=== PATIENT | male | born 1945 | race Caucasian/White ===

== ENCOUNTER → 2020-07-06 13:12 | Outpatient (BNVA) | payer MEDICARE, SELFPAY | PROVIDERS: PCP Internal Medicine; Referring Provider Internal Medicine; Visit Provider Internal Medicine | DX: Z45.018 Encounter for adjustment and management of other part of cardiac pacemaker (principal); I47.2 Ventricular tachycardia; I10 Essential (primary) hypertension | CPT/HCPCS: 93005; 99212 ==

== ENCOUNTER 2020-08-06 10:52 | Outpatient (REF) | payer MEDICARE, SELFPAY ==
[2020-08-06 12:01] LABS: MANUAL DIFF FLAG NO
[2020-08-06 12:18] LABS: Basophils Absolute Auto 0.1 X10*3/uL (0.0-0.2); Basophils Percent Auto 0.7 % (0-2); Eosinophils Absolute Auto 0.1 X10*3/uL (0.0-0.4); Eosinophils Percent Auto 1.5 % (0-4); Hematocrit 42.7 % (42-52); Hemoglobin 14.6 g/dl (14.0-18.0); Imm Gran Abs Auto 0.02 X10*3/uL (0.00-0.03); Imm Gran Pct Auto 0.3 % (0.0-0.4); Lymphocytes Absolute Auto 1.6 X10*3/uL (1.2-4.9); Lymphocytes Percent Auto 21.7 % (20-40); Mean Corpuscular HGB Conc 34.2 g/dl (31.0-36.0); Mean Corpuscular Hemoglobin 30.2 pg (27.0-33.0); Mean Corpuscular Volume 88.2 fL (80-98); Mean Platelet Volume 11.1 fL (9.4-12.4); Monocytes Absolute Auto 0.7 X10*3/uL (0.1-1.2); Monocytes Percent Auto 9.9 % (2-11); Neutrophils Percent Auto 65.9 % (45-73); Platelet Count 205 X10*3/uL (160-400); Red Blood Count 4.84 X10*6/uL (4.60-5.80); Red Cell Distribution Width 11.9 % (11.0-16.0); White Blood Count 7.5 X10*3/uL (4.8-10.8)
[2020-08-06 12:23] LABS: INTERNATIONAL NORM RATIO 1.1 (0.9-1.1); Prothrombin Time 12.9 SEC (10.8-13.0)
[2020-08-06 12:39] LABS: Anion Gap 12 (12-20); Blood Urea Nitrogen 16 mg/dL (9-16); Calcium 9.7 mg/dL (8.4-10.2); Carbon Dioxide 25 mmol/L (22-29); Chloride 107 mmol/L (96-108); Estimated Glomerular Filt Rate > 60; Glucose Random 120 mg/dL (60-115); Potassium 4.3 mmol/l (3.3-5.1); Sodium 140 mmol/L (135-145)
== END 2020-08-06 10:53 | disposition home or self-care (01) ==
LOC: HO.LAB 10:52
PROVIDERS: PCP Internal Medicine; Visit Provider Internal Medicine Cardiovascular Disease
DX: Z01.810 Encounter for preprocedural cardiovascular examination (principal)
CPT/HCPCS: 36415; 80048; 85025; 85610

== ENCOUNTER 2020-08-10 10:34 | Day surgery (SDC) | payer MEDICARE, SELFPAY ==
[2020-08-04 14:37] VITALS: BMI 27.5
--- NOTE | 2020-08-07 12:39 | HO.ANESPROP2 ---
Documented by User: Chelsi Miller 08/07/20 12:48 [facility] Past Medical History Medical History (Updated 08/04/20 @ 14:42 by Lesli Sauceda) BPH (benign prostatic hyperplasia) Essential hypertension Hyperlipidemia, unspecified Normally functioning cardiac pacemaker present NSVT (nonsustained ventricular tachycardia) Type 2 diabetes mellitus with unspecified complications Wears partial dentures Family History Family History Father Diabetes Heart disease Mother Hypertension CVD (cardiovascular disease) Surgical History Surgical History (Updated 08/04/20 @ 14:39 by Lesli Sauceda) H/O colonoscopy History of cardiac pacemaker (~2011) Hx of appendectomy Social History Social History Smoking Status: Former smoker Use of substances other than those prescribed or required for medical reasons: No Advance Directives Information Provided: No Recently lost weight without trying: No Meds Allergies Allergy/AdvReac Type Severity Reaction Status Date / Time No Known Allergies Allergy Verified 08/07/20 14:15 Home Medications Medication Instructions Recorded Confirmed Type aspirin 81 mg tablet,delayed 81 mg PO DAILY 07/06/20 08/04/20 History release atenolol 50 mg tablet 50 mg PO DAILY 07/06/20 08/04/20 History cholecalciferol (vitamin D3) 25 25 mcg PO DAILY 07/06/20 08/04/20 History mcg (1,000 unit) capsule cyanocobalamin (vitamin B-12) 1,000 mcg PO DAILY 07/06/20 08/04/20 History 1,000 mcg sublingual tablet metformin 500 mg tablet 1,000 mg PO BID 07/06/20 08/04/20 History Exam Exam Date and Time: August 07, 2020 1239 Height,Weight and Vital Signs: Height 6 ft Weight 92.079 kg Pertinent Lab Results Pertinent Lab Results: Laboratory Tests 08/06/20 08/06/20 11:10 11:10 WBC 7.5 Hgb 14.6 Hct 42.7 Plt Count 205 Sodium 140 Potassium 4.3 Chloride 107 Carbon Dioxide 25 BUN 16 Creatinine 0.86 Narrative Narrative: Cardiac Device Check 05/2020 Details: ELVIS less than 3 months. Be lead parameters within normal limits. Atrially paced 7.4%. Ventricular pacing more than 99%. PVCs noted but no other arrhythmias. Overall normal function. Per Cardiology Note 06/2020: Echocardiogram with mildly impaired LVEF at 45-50%. Myocardial perfusion imaging study with likely normal perfusion. Overall, no specific management. EKG 06/2020: A-sensed, V-paced @ 73, prolonged AV conduction Assessment and Plan Assessment Anesthesia Assessment: Chart Reviewed Documented by User: Latanya River 08/10/20 12:49 HPI - Anesthesia Eval Consult details Narrative: 75yo male patient here for pacemaker generator change [facility] Past Medical History Medical History (Updated 08/04/20 @ 14:42 by Lesli Sauceda) BPH (benign prostatic hyperplasia) Essential hypertension Hyperlipidemia, unspecified Normally functioning cardiac pacemaker present NSVT (nonsustained ventricular tachycardia) Type 2 diabetes mellitus with unspecified complications Wears partial dentures Family History Family History Father Diabetes Heart disease Mother Hypertension CVD (cardiovascular disease) Family history of problems with anesthesia: No Surgical History Surgical History (Updated 08/04/20 @ 14:39 by Lesli Sacueda) H/O colonoscopy History of cardiac pacemaker (~2011) Hx of appendectomy History of Problems with Anesthesia: No Social History Social History Smoking Status: Former smoker Use of substances other than those prescribed or required for medical reasons: No Advance Directives Information Provided: No Recently lost weight without trying: No Meds Allergies Allergy/AdvReac Type Severity Reaction Status Date / Time No Known Allergies Allergy Verified 08/07/20 14:15 Home Medications Medication Instructions Recorded Confirmed Type aspirin 81 mg tablet,delayed 81 mg PO DAILY 07/06/20 08/04/20 History release atenolol 50 mg tablet 50 mg PO DAILY 07/06/20 08/04/20 History cholecalciferol (vitamin D3) 25 25 mcg PO DAILY 07/06/20 08/04/20 History mcg (1,000 unit) capsule cyanocobalamin (vitamin B-12) 1,000 mcg PO DAILY 07/06/20 08/04/20 History 1,000 mcg sublingual tablet metformin 500 mg tablet 1,000 mg PO BID 07/06/20 08/04/20 History Exam Height,Weight and Vital Signs: Vital Signs Temp Pulse Resp BP Pulse Ox 08/10/20 11:02 97.8 F 70 18 130/60 96 Pertinent Lab Results Pertinent Lab Results: POC 141 Airway Mallampati Class: II TM Dist: >3cm Neck ROM: Full Partial: Upper and Lower Heart: RRR Lungs: CTAB Assessment and Plan Assessment Anesthesia Assessment: Anesthesia Plan Discussed and Chart Reviewed Final Anesthetic Review ASA Class: III Final Preanesthetic Review: Meds/Netogs Chart Reviewed, Consent Obtained/Reviewed and Anes Risks/Benef Reviewed Patient Risk: High Procedure Risk: Intermediate Assessment/Block/Sedation in SS: Assess/Block/Sedation-SS Anesthetic Plan Anesthetic Plan: MAC: Disposition: Standard PACU
[2020-08-10 11:02] VITALS: BP 130/60; PULSE 70; RESP 18; TEMP 36.6; O2SAT 96; BMI 27.5
[2020-08-10 11:15] LABS: Glucose, Whole Blood 141 mg/dL (60-115)
[2020-08-10] MEDS: Lactated Ringers 1,000 ML 50 ML IVCONT (11:30)
--- NOTE | 2020-08-10 11:38 | PC.NURSE ---
[facility] [employer] rep bedside. checking settings of pacemaker.
[2020-08-10 14:24] VITALS: BP 147/66; PULSE 63; RESP 16; TEMP 36.8; O2SAT 97
[2020-08-10 14:39] VITALS: BP 147/68; PULSE 64; RESP 18; O2SAT 96
--- NOTE | 2020-08-10 14:41 | PM.OP ---
Brief Operative Note Date of Service: 08/10/20 Surgeon: Kira Otero MD Estimated blood loss (mL): 0
[2020-08-10 14:54] VITALS: BP 150/73; PULSE 67; RESP 18; O2SAT 96
--- NOTE | 2020-08-10 15:02 | W.PM.OPN ---
Course Vital Signs Vital signs: Vital Signs Temperature 97.8 F 08/10/20 11:02 Pulse Rate 70 08/10/20 11:02 Respiratory Rate 18 08/10/20 11:02 Blood Pressure 130/60 08/10/20 11:02 Pulse Oximetry 96 08/10/20 11:02 Temperature 98.2 F 08/10/20 14:24 Pulse Rate 67 08/10/20 14:54 Respiratory Rate 18 08/10/20 14:54 Blood Pressure 150/73 H 08/10/20 14:54 Pulse Oximetry 96 08/10/20 14:54
--- NOTE | 2020-08-10 15:04 | W.PM.OPN ---
Operative Note Operative Note Date of Service: 08/10/20 Narrative: Date of Service: 08/10/2020 Narrative: Procedure: Dual chamber pacemaker generator change Indication: dual chamber pacemaker ELVIS, complete heart block Anesthesia: MAC provided by anesthesia service Procedure The risks, benefits, complications, alternatives and expected outcomes were discussed with the patient. Patient was prepped and draped in the usual sterile fashion. After the antibiotic was infused, lidocaine was infiltrated medial to the deltopectoral groove. An incision was made. The incision was extended to the prepectoral fascia using blunt dissection. The RV lead was noted to have slight kink towards the end attached to the generator but all impedances/thresholds have been stable. The RV and RA leads were detached from the prior device and attached to the new device. A sleeve was placed around the lead to protect it from further kinking and all parameters were checked again and noted to be stable. The system was placed in the pocket in a way to avoid future kinking. The pocket was closed with 3 layers. 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
== END 2020-08-10 15:46 | disposition home or self-care (01) ==
PROVIDERS: PCP Internal Medicine; Visit Provider Internal Medicine Cardiovascular Disease
PROC: 0JPT0PZ Removal of Cardiac Rhythm Related Device from Trunk Subcutaneous Tissue and Fascia, Open Approach (ICD-10-PCS; CPT 33228; principal; 2020-08-10 12:00)
DX: Z45.010 Encounter for checking and testing of cardiac pacemaker pulse generator [battery] (principal); I44.2 Atrioventricular block, complete; I47.2 Ventricular tachycardia; I10 Essential (primary) hypertension; E11.9 Type 2 diabetes mellitus without complications; Z79.84 Long term (current) use of oral hypoglycemic drugs; Z79.82 Long term (current) use of aspirin; Z79.899 Other long term (current) drug therapy; Z87.891 Personal history of nicotine dependence
CPT/HCPCS: 33228; 82947; C1785; J0690; J2250; J3010; J3370

== ENCOUNTER → 2020-08-25 13:01 | Outpatient (BNVA) | payer MEDICARE, SELFPAY | PROVIDERS: PCP Internal Medicine; Referring Provider Internal Medicine; Visit Provider Internal Medicine | DX: Z45.018 Encounter for adjustment and management of other part of cardiac pacemaker (principal); I47.2 Ventricular tachycardia; I10 Essential (primary) hypertension | CPT/HCPCS: 99212 ==

== ENCOUNTER → 2020-10-02 07:22 | Outpatient (BNVA) | payer MEDICARE, SELFPAY | PROVIDERS: PCP Internal Medicine; Visit Provider Nurse Practitioner Gerontology | DX: E11.65 Type 2 diabetes mellitus with hyperglycemia (principal); E78.00 Pure hypercholesterolemia, unspecified; I10 Essential (primary) hypertension; Z79.84 Long term (current) use of oral hypoglycemic drugs; Z71.3 Dietary counseling and surveillance; Z87.891 Personal history of nicotine dependence | CPT/HCPCS: 82947; 99212 ==

== ENCOUNTER 2020-10-07 13:17 | Outpatient (REF) | payer MEDICARE, SELFPAY ==
[2020-10-07 14:15] LABS: Alanine Aminotransferase 22 U/L (0-40); Albumin Level 4.3 g/dL (3.5-5.0); Alkaline Phosphatase 78 U/L (39-117); Anion Gap 12 (12-20); Aspartate Amino Transferase 19 U/L (5-37); Bilirubin Total 0.6 mg/dL (0.0-1.0); Blood Urea Nitrogen 19 mg/dL (9-16); Calcium 9.4 mg/dL (8.4-10.2); Carbon Dioxide 26 mmol/L (22-29); Chloride 107 mmol/L (96-108); Cholesterol 126 mg/dL; Estimated Glomerular Filt Rate > 60; Glucose Fasting 127 mg/dL (60-99); HDL Cholesterol 37 mg/dL; LDL Cholesterol Calculated 56 mg/dl; Sodium 141 mmol/L (135-145); Total Protein 7.2 g/dL (6.5-8.0); Triglycerides 168 mg/dL
[2020-10-07 14:32] LABS: PSA,Total (Free>4and<10) 3.05 ng/mL (0.00-4.00)
[2020-10-07 14:49] LABS: Creatinine Urine 175.41 mg/dL; Microalbum/Creatinine Ratio Ur 23.3 ug/mg cr
[2020-10-08 04:06] LABS: LDL Cholesterol Direct 70 mg/dL (<100)
== END 2020-10-07 13:18 | disposition home or self-care (01) ==
LOC: HO.LAB 13:17
PROVIDERS: Nurse Practitioner Gerontology; PCP Internal Medicine; Visit Provider Urology
DX: Z12.5 Encounter for screening for malignant neoplasm of prostate (principal); E11.65 Type 2 diabetes mellitus with hyperglycemia; Z87.898 Personal history of other specified conditions
CPT/HCPCS: 36415; 80053; 80061; 82043; 83721; 84153

== ENCOUNTER → 2020-10-15 13:48 | Outpatient (BNVA) | payer MEDICARE, SELFPAY | PROVIDERS: Visit Provider Urology | CPT/HCPCS: 99212 ==

== ENCOUNTER 2020-10-20 07:27 | Outpatient (REF) | payer MEDICARE, SELFPAY ==
[2020-10-20 08:42] LABS: MANUAL DIFF FLAG NO
[2020-10-20 08:47] LABS: Basophils Absolute Auto 0.1 X10*3/uL (0.0-0.2); Basophils Percent Auto 0.8 % (0-2); Eosinophils Absolute Auto 0.2 X10*3/uL (0.0-0.4); Eosinophils Percent Auto 3.8 % (0-4); Glucose Urine UA NEG (NEG); Hematocrit 41.8 % (42-52); Hemoglobin 13.9 g/dl (14.0-18.0); Imm Gran Abs Auto 0.02 X10*3/uL (0.00-0.03); Imm Gran Pct Auto 0.3 % (0.0-0.4); Leukocyte Esterase Urine NEG (NEG); Lymphocytes Absolute Auto 2.1 X10*3/uL (1.2-4.9); Lymphocytes Percent Auto 32.8 % (20-40); Mean Corpuscular HGB Conc 33.3 g/dl (31.0-36.0); Mean Corpuscular Hemoglobin 29.3 pg (27.0-33.0); Mean Corpuscular Volume 88.2 fL (80-98); Mean Platelet Volume 10.7 fL (9.4-12.4); Monocytes Absolute Auto 0.8 X10*3/uL (0.1-1.2); Monocytes Percent Auto 12.7 % (2-11); Neutrophils Absolute Auto 3.1 X10*3/uL (2.0-8.3); Neutrophils Percent Auto 49.6 % (45-73); Nitrite Urine NEG (NEG); PH 7.5 (5.0-8.0); Platelet Count 220 X10*3/uL (160-400); Red Blood Count 4.74 X10*6/uL (4.60-5.80); Red Cell Distribution Width 12.1 % (11.0-16.0); Urine Blood NEG (NEG); Urine Ketones NEG (NEG); Urine Protein NEG (NEG-TRACE); White Blood Count 6.3 X10*3/uL (4.8-10.8)
[2020-10-20 08:50] LABS: Appearance Urine CLOUDY; Color Urine YELLOW
[2020-10-20 09:20] LABS: Creatinine Urine 157.78 mg/dL; Microalbum/Creatinine Ratio Ur 38.6 ug/mg cr
[2020-10-20 09:26] LABS: Alanine Aminotransferase 16 U/L (0-40); Albumin Level 4.3 g/dL (3.5-5.0); Alkaline Phosphatase 86 U/L (39-117); Anion Gap 16 (12-20); Aspartate Amino Transferase 18 U/L (5-37); Bilirubin Total 0.8 mg/dL (0.0-1.0); Blood Urea Nitrogen 24 mg/dL (9-16); Calcium 9.7 mg/dL (8.4-10.2); Carbon Dioxide 25 mmol/L (22-29); Chloride 106 mmol/L (96-108); Cholesterol 121 mg/dL; Estimated Glomerular Filt Rate > 60; Glucose Fasting 149 mg/dL (60-99); HDL Cholesterol 38 mg/dL; LDL Cholesterol Calculated 67 mg/dl; Potassium 4.7 mmol/L (3.3-5.1); Sodium 142 mmol/L (135-145); Total Protein 7.3 g/dL (6.5-8.0); Triglycerides 80 mg/dL
[2020-10-20 09:29] LABS: Estimated Average Glucose 148 mg/dL; Hemoglobin A1c % 6.8 %
[2020-10-20 09:38] LABS: TSH reflex Free T4 1.05 uIU/mL (0.32-4.0); Vitamin D 25-OH Total 32.1 ng/mL (>30)
== END 2020-10-20 07:28 | disposition home or self-care (01) ==
LOC: HO.LAB 07:27
PROVIDERS: PCP Internal Medicine; Visit Provider Internal Medicine
DX: I10 Essential (primary) hypertension (principal); E11.9 Type 2 diabetes mellitus without complications; E78.00 Pure hypercholesterolemia, unspecified; E55.9 Vitamin D deficiency, unspecified; E66.3 Overweight
CPT/HCPCS: 36415; 80053; 80061; 81003; 82043; 82306; 83036; 84443; 85025

== ENCOUNTER → 2021-01-27 07:25 | Outpatient (BNVA) | payer MEDICARE, SELFPAY | PROVIDERS: PCP Internal Medicine; Visit Provider Nurse Practitioner Gerontology | DX: E11.65 Type 2 diabetes mellitus with hyperglycemia (principal); I10 Essential (primary) hypertension; E78.00 Pure hypercholesterolemia, unspecified | CPT/HCPCS: 82947; 99212 ==

== ENCOUNTER → 2021-02-02 13:37 | Outpatient (BNVA) | payer MEDICARE, SELFPAY | PROVIDERS: PCP Internal Medicine; Visit Provider Internal Medicine | DX: Z45.018 Encounter for adjustment and management of other part of cardiac pacemaker (principal); I47.2 Ventricular tachycardia; I10 Essential (primary) hypertension; E11.8 Type 2 diabetes mellitus with unspecified complications | CPT/HCPCS: 99212 ==

== ENCOUNTER 2021-04-12 10:38 | Outpatient (REF) | payer MEDICARE, SELFPAY ==
[2021-04-12 12:32] LABS: Prostate Specific Antigen 2.91 ng/mL (<0.05-4.0)
== END 2021-04-12 10:39 | disposition home or self-care (01) ==
LOC: HO.LAB 10:38
PROVIDERS: PCP Internal Medicine; Visit Provider Urology
DX: N40.1 Benign prostatic hyperplasia with lower urinary tract symptoms (principal); N13.8 Other obstructive and reflux uropathy
CPT/HCPCS: 36415; 84153

== ENCOUNTER → 2021-04-21 13:59 | Outpatient (BNVA) | payer MEDICARE, SELFPAY | PROVIDERS: PCP Internal Medicine; Visit Provider Urology | DX: N40.0 Benign prostatic hyperplasia without lower urinary tract symptoms (principal) | CPT/HCPCS: Q3014 ==

== ENCOUNTER 2021-04-23 08:09 | Outpatient (REF) | payer MEDICARE, SELFPAY ==
[2021-04-23 08:53] LABS: MANUAL DIFF FLAG NO
[2021-04-23 08:58] LABS: Basophils Percent Auto 0.6 % (0-2); Eosinophils Absolute Auto 0.1 X10*3/uL (0.0-0.4); Eosinophils Percent Auto 2.1 % (0-4); Hematocrit 41.5 % (42-52); Hemoglobin 13.9 g/dl (14.0-18.0); Imm Gran Abs Auto 0.02 X10*3/uL (0.00-0.03); Imm Gran Pct Auto 0.3 % (0.0-0.4); Lymphocytes Absolute Auto 1.7 X10*3/uL (1.2-4.9); Lymphocytes Percent Auto 25.6 % (20-40); Mean Corpuscular HGB Conc 33.5 g/dl (31.0-36.0); Mean Corpuscular Volume 89.4 fL (80-98); Mean Platelet Volume 10.3 fL (9.4-12.4); Monocytes Absolute Auto 0.7 X10*3/uL (0.1-1.2); Neutrophils Percent Auto 60.4 % (45-73); Platelet Count 224 X10*3/uL (160-400); Red Blood Count 4.64 X10*6/uL (4.60-5.80); Red Cell Distribution Width 13.2 % (11.0-16.0); White Blood Count 6.6 X10*3/uL (4.8-10.8)
[2021-04-23 09:04] LABS: Appearance Urine CLOUDY; Color Urine YELLOW; Glucose Urine UA NEG (NEG); Leukocyte Esterase Urine 2+ (NEG); Nitrite Urine NEG (NEG); UACC Culture Trigger YES; Urine Blood NEG (NEG); Urine Ketones NEG (NEG); Urine Protein NEG (NEG-TRACE)
[2021-04-23 09:15] LABS: Bacteria Urine 3+ /LPF; Mucus Urine 1+ /LPF; Squamous Epithelial Cell Urine 1+ /LPF; WBC Urine 50-75 /HPF (0-4)
[2021-04-23 09:23] LABS: Alanine Aminotransferase 27 U/L (0-40); Albumin Level 4.4 g/dL (3.5-5.0); Alkaline Phosphatase 72 U/L (39-117); Anion Gap 12 (12-20); Aspartate Amino Transferase 24 U/L (5-37); Blood Urea Nitrogen 11 mg/dL (9-16); Calcium 10.3 mg/dL (8.4-10.2); Carbon Dioxide 24 mmol/L (22-29); Chloride 110 mmol/L (96-108); Cholesterol 121 mg/dL; Estimated Glomerular Filt Rate > 60; Glucose Fasting 125 mg/dL (60-99); HDL Cholesterol 41 mg/dL; LDL Cholesterol Calculated 64 mg/dl; Potassium 4.4 mmol/L (3.3-5.1); Sodium 142 mmol/L (135-145); Total Protein 7.2 g/dL (6.5-8.0); Triglycerides 84 mg/dL
[2021-04-23 09:24] LABS: Creatinine Urine 126.53 mg/dL
[2021-04-23 09:46] LABS: TSH reflex Free T4 0.87 uIU/mL (0.32-4.0); Vitamin D 25-OH Total 29.2 ng/mL (>30)
[2021-04-23 09:59] LABS: Estimated Average Glucose 131 mg/dL; Hemoglobin A1C 150.3073 umol/L; Hemoglobin A1c % 6.2 %
== END 2021-04-23 08:10 | disposition home or self-care (01) ==
LOC: HO.LAB 08:09
PROVIDERS: PCP Internal Medicine; Visit Provider Internal Medicine
DX: I10 Essential (primary) hypertension (principal); E11.9 Type 2 diabetes mellitus without complications; E78.00 Pure hypercholesterolemia, unspecified; E55.9 Vitamin D deficiency, unspecified; E66.3 Overweight; I49.5 Sick sinus syndrome
CPT/HCPCS: 36415; 80053; 80061; 81001; 81003; 82043; 82306; 83036; 84443; 85025; 87086

== ENCOUNTER → 2021-08-02 12:30 | Outpatient (BNVA) | payer MEDICARE, SELFPAY | PROVIDERS: PCP Internal Medicine; Referring Provider Internal Medicine; Visit Provider Internal Medicine | DX: Z45.018 Encounter for adjustment and management of other part of cardiac pacemaker (principal); I47.2 Ventricular tachycardia; I42.9 Cardiomyopathy, unspecified; I10 Essential (primary) hypertension; E11.8 Type 2 diabetes mellitus with unspecified complications | CPT/HCPCS: 93005; 99212 ==

== ENCOUNTER → 2021-08-30 09:55 | Outpatient (BNVA) | payer MEDICARE, SELFPAY | PROVIDERS: PCP Internal Medicine; Visit Provider Nurse Practitioner Gerontology | DX: E11.65 Type 2 diabetes mellitus with hyperglycemia (principal); I10 Essential (primary) hypertension; E78.00 Pure hypercholesterolemia, unspecified | CPT/HCPCS: 82947; 83036; 99212 ==

== ENCOUNTER 2022-04-14 10:16 | Outpatient (REF) | payer MEDICARE, SELFPAY ==
[2022-04-14 12:19] LABS: Prostate Specific Antigen 3.36 ng/mL (<0.05-4.0)
== END 2022-04-14 10:17 | disposition home or self-care (01) ==
LOC: HO.LAB 10:16
PROVIDERS: PCP Internal Medicine; Visit Provider Urology
DX: N40.1 Benign prostatic hyperplasia with lower urinary tract symptoms (principal); N13.8 Other obstructive and reflux uropathy; Z12.5 Encounter for screening for malignant neoplasm of prostate
CPT/HCPCS: 36415; 84153

== ENCOUNTER → 2022-04-21 11:09 | Outpatient (BNVA) | payer MEDICARE, SELFPAY | PROVIDERS: PCP Internal Medicine; Visit Provider Urology | DX: N40.1 Benign prostatic hyperplasia with lower urinary tract symptoms (principal); R39.15 Urgency of urination; R35.0 Frequency of micturition | CPT/HCPCS: 51798; 99212 ==

== ENCOUNTER → 2022-07-20 10:26 | Outpatient (REF) | payer MEDICARE, SELFPAY ==
--- NOTE | 2022-07-20 10:28 | CA_ITS ---
Transthoracic Echocardiogram Patient (Last, First, Middle): Nasim Gilbert J Gender: Male Date of : 1945 Age: 77 Procedure Date: 07/20/2022 Procedure Type: Transthoracic Echocardiogram Location: OP Height: 182.88 cm Weight: 95.26 kg BSA: 2.18 m2 Heart Rate: 70 bpm BP: 130 / 75 mmHg Forest Fire Prevention Manager: DARRELL Nelson MD: Adriel Marquez MD Tandem Mill Operator: Ej Patrick MD Symptoms: I42.9 - Cardiomyopathy, unspecified Study Quality: Adequate ECG Rhythm: Sinus Conclusions: - 1. Normal LV systolic function with impaired relaxation filling pattern 2. Fibrocalcific aortic valve changes noted mild mitral calcification with normal cardiac valvular Doppler 3. No gross pericardial effusion Findings Left Ventricle Normal left ventricular size, thickness, and systolic function. The visually estimated ejection fraction is between 60-65%. There is paradoxical septal motion consistent with a right ventricular pacemaker. Spectral Doppler is indicative of an impaired relaxation filling pattern. E/E prime ratio is between 8 and 15 consistent with indeterminate filling pressures. Right Ventricle Normal right ventricular cavity size and systolic function. There is a pacemaker wire seen in the right ventricle. Atria The left atrium is likely dilated. There is no evidence of interatrial shunt. The right atrium is normal in size. A pacemaker wire is identified in the right atrium. Aortic Valve There is mild calcification of the aortic valve. There is no aortic valve stenosis. There is no aortic valve regurgitation. Mitral Valve There is mild anterior and posterior mitral leaflet thickening. There is mild mitral annular calcification. There is trace mitral valve regurgitation. There is no mitral valve stenosis. Pulmonic Valve The pulmonic valve was not well visualized. Tricuspid Valve Likely normal tricuspid valve structure and function. Tricuspid regurgitation envelope is inadequate for calculation of right ventricular systolic pressure. Normal right atrial pressure. Great Vessels All visible segments of the aorta are normal in size. The pulmonary artery was not well visualized. Venous The inferior vena cava is normal in size and collapses greater than 50% with inspiration. Pericardium/Pleural There is no evidence of pericardial effusion. Prior Study Comparison Changes noted compared to prior study dated: 07/11/2019. LV systolic function is normal Measurements 2D Linear Measurements IVSd: 0.95 0.6-0.9/0.6-1.0 cm LVIDd: 4.16 3.9-5.3/4.2-5.9 cm LVIDd Index: 1.91 2.4-3.2/2.2-3.1 cm/m2 LVIDs: 3.31 2.0-3.6 cm LVPWd: 1.12 0.7-1.1 cm LA Diam: 4.50 2.7-3.8/3.0-4.0 cm LAIDs Index: 2.06 1.5-2.3 cm/m2 LV Mass: 176.12 67-162/88-224 g LV Mass Index: 80.79 43-95/49-115 g/m2 LVOT Diam: 1.90 3.0+(-)1.3 cm 2D Systolic Function EF 4C: 66.90 >55% EF 2C: 55.80 >55% EF BiP: 61.50 >55% Mitral Valve MV Pk E: 0.73 MV PK A: 1.05 MV Decel Time: 166.00 E/A: 0.70 E'Lateral: 6.96 E'Medial: 6.09 E/E' Med: 12.00 E/E' Lat: 10.50 PHT: 49.00 MVA PHT: 4.49 Decel Pitkin: 4.40 Aortic Valve AoV Pk Ean: 1.70 AoV Mn Ean: 1.25 AoV VTI: 0.35 AoV Pk Grad: 12.00 Aov Mn Grad: 7.00 GREER Cont.VTI: 2.35 LVOT LVOT Pk Ean: 1.44 LVOT Mn Ean: 1.02 LVOT VTI: 0.29 LVOT Pk Grad: 8.00 LVOT Mn Grad: 6.00 LVOT Diam: 1.90 LVOT Area: 2.84 Diastolic Function MV Pk E: 0.73 MV Pk A: 1.05 E/A: 0.70 E'Medial: 6.09 E/E' Med: 12.00 E' Laterial: 6.96 E/E' Lat: 10.50 Right Ventricle TAPSE (mm): 23.00 TVS' Ean: 11.30 Tricuspid Valve RA Press: 3.00 Great Vessels Aorta Sinus of Valsalva: 3.20 2.0-3.5 cm Ao Asc: 3.10 2.1-3.4 cm Pulmonary Valve PV Pk Ean: 0.81 Peak PV Grad: 3.00 Updated in Other Vendor System with Status of Final Ej Patrick MD electronically signed on 07/21/2022 12:43:08 PM with status of Final
== END ==
LOC: HO.CARD 10:26
PROVIDERS: PCP Internal Medicine; Visit Provider Internal Medicine
DX: I42.9 Cardiomyopathy, unspecified (principal)
CPT/HCPCS: 93306

== ENCOUNTER → 2022-10-04 14:06 | Outpatient (BNVA) | payer MEDICARE, SELFPAY | PROVIDERS: PCP Internal Medicine; Referring Provider Internal Medicine; Visit Provider Internal Medicine | DX: I47.20 Ventricular tachycardia, unspecified (principal); I42.9 Cardiomyopathy, unspecified; I10 Essential (primary) hypertension; E11.8 Type 2 diabetes mellitus with unspecified complications; Z95.0 Presence of cardiac pacemaker | CPT/HCPCS: 93005; 99212 ==

== ENCOUNTER → 2022-10-31 13:32 | Outpatient (BNVA) | payer MEDICARE, SELFPAY | PROVIDERS: PCP Internal Medicine; Visit Provider Internal Medicine | DX: Z45.018 Encounter for adjustment and management of other part of cardiac pacemaker (principal); I45.9 Conduction disorder, unspecified | CPT/HCPCS: 93280 ==

== ENCOUNTER → 2023-02-02 23:59 | Outpatient (BNV) | payer MEDICARE, SELFPAY ==
--- NOTE | 2023-02-08 13:44 | MHC.OFFVIS ---
Intake Intake Visit Reasons: Remote Device Check- [facility] Allergies No Known Allergies Allergy (Verified 10/21/22 13:07) [facility] Medical History Actinic keratoses Benign essential hypertension BPH (benign prostatic hyperplasia) Cardiomyopathy Diabetes mellitus Diabetes type 2, uncontrolled Essential hypertension History of anemia History of colon cancer Hyperlipidemia, unspecified Hypospadias in male Melanocytic nevus Normally functioning cardiac pacemaker present NSVT (nonsustained ventricular tachycardia) Overweight (BMI 25.0-29.9) Pure hypercholesterolemia Tachycardia-bradycardia syndrome Type 2 diabetes mellitus with unspecified complications Vitamin D deficiency Wears partial dentures Surgical History H/O colonoscopy History of cardiac pacemaker (~2011) History of partial colectomy (~2013) Hx of appendectomy Hx of tonsillectomy Family History Father Diabetes Heart disease Hypertension Mother Hypertension CVD (cardiovascular disease) Diabetes Social History Household Members: Significant Other Alcohol intake: current Alcohol intake frequency: holidays/special occasions only Patient Tobacco Use Status: Former Tobacco user Quit Date: 12 years ago e-Cigarette/Vaping Use: Never Used Office Procedures Cardiac Device Check Cardiac Device Check Details: Date of service- 02/02/2023 ; Battery life >8 years; normal lead parameters; AP 4.5%; CHEMICALS FERMENTATION OPERATOR >99%; no significant arrhythmias. Overall normal device function. [id number] Cardiac Device Interrogation, pacemaker Procedure code (CPT) selection complete Assessment & Plan Assessment & Plan (1) Heart block: Code(s): I45.9 - Conduction disorder, unspecified Coding Level of Care Code Procedure Only Diagnoses Heart block I45.9 CPT Codes Cardiac Device Check - Cardiac Device 12: [id number] Cardiac Device Interrogation, pacemaker ([id number])
== END ==
PROVIDERS: PCP Internal Medicine; Visit Provider Internal Medicine
DX: I45.9 Conduction disorder, unspecified (principal); Z95.0 Presence of cardiac pacemaker
CPT/HCPCS: 93294

== ENCOUNTER 2023-04-14 08:29 | Outpatient (REF) | payer MEDICARE, SELFPAY ==
[2023-04-14 09:01] LABS: MANUAL DIFF FLAG NO
[2023-04-14 09:24] LABS: Basophils Absolute Auto 0.1 X10*3/uL (0.0-0.2); Basophils Percent Auto 1.1 % (0-2); Eosinophils Absolute Auto 0.2 X10*3/uL (0.0-0.4); Hematocrit 43.7 % (42.0-52.0); Imm Gran Abs Auto 0.02 X10*3/uL (0.00-0.03); Imm Gran Pct Auto 0.3 % (0.0-0.4); Lymphocytes Absolute Auto 1.8 X10*3/uL (1.2-4.9); Lymphocytes Percent Auto 28.4 % (20-40); Mean Corpuscular HGB Conc 34.3 g/dl (31.0-36.0); Mean Corpuscular Hemoglobin 29.5 pg (27.0-33.0); Mean Platelet Volume 10.4 fL (9.4-12.4); Monocytes Absolute Auto 0.9 X10*3/uL (0.1-1.2); Monocytes Percent Auto 13.2 % (2-11); Neutrophils Absolute Auto 3.5 x10*3/uL (2.0-8.3); Platelet Count 184 X10*3/uL (160-400); Red Blood Count 5.08 X10*6/uL (4.60-5.80); Red Cell Distribution Width 13.2 % (11.0-16.0); White Blood Count 6.4 X10*3/uL (4.8-10.8)
[2023-04-14 09:27] LABS: Estimated Average Glucose 120 mg/dL; Hemoglobin A1c % 5.8 % (<6.0)
[2023-04-14 10:15] LABS: Alanine Aminotransferase 18 U/L (0-40); Albumin Level 4.3 g/dL (3.5-5.0); Alkaline Phosphatase 78 U/L (39-117); Anion Gap 10 (12-20); Aspartate Amino Transferase 21 U/L (5-37); Bilirubin Total 0.5 mg/dL (0.0-1.0); Blood Urea Nitrogen 10 mg/dL (9-16); Calcium 10.7 mg/dL (8.4-10.2); Carbon Dioxide 26 mmol/L (22-29); Chloride 107 mmol/L (96-108); Cholesterol 129 mg/dL (<200); Estimated Glomerular Filt Rate > 60; Glucose Fasting 114 mg/dL (60-99); HDL Cholesterol 45 mg/dL (>40); LDL Cholesterol Calculated 61 mg/dL (<100); Potassium 3.9 mmol/L (3.3-5.1); Sodium 139 mmol/L (135-145); Total Protein 7.6 g/dL (6.5-8.0); Triglycerides 115 mg/dL (<150)
[2023-04-14 10:16] LABS: Prostate Specific Antigen 4.29 ng/mL (<0.05-4.0)
== END 2023-04-14 08:30 | disposition home or self-care (01) ==
LOC: HO.LAB 08:29
PROVIDERS: PCP Internal Medicine; Visit Provider Urology
DX: E11.9 Type 2 diabetes mellitus without complications (principal); E78.00 Pure hypercholesterolemia, unspecified; I10 Essential (primary) hypertension; N40.0 Benign prostatic hyperplasia without lower urinary tract symptoms; R30.0 Dysuria; Z12.5 Encounter for screening for malignant neoplasm of prostate
CPT/HCPCS: 36415; 80053; 80061; 83036; 84153; 85025

== ENCOUNTER 2023-04-25 10:38 | Outpatient (AMB) | payer MEDICARE, SELFPAY ==
[2023-04-25 10:39] VITALS: BP 148/92; PULSE 80; O2SAT 95; BMI 26.7
--- NOTE | 2023-04-25 10:39 | MHC.PC.OV ---
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 Required: No Accompanied by: Self / Same As Patient Allergies No Known Allergies Allergy (Verified 04/25/23 11:18) Medication List - Last Reconciled 04/25/23 by Silvano Peck MD aspirin 81 mg PO DAILY benazepril 40 mg PO DAILY 90 days blood pressure monitor (Blood Pressure Kit) As directed cholecalciferol (vitamin D3) 25 mcg PO DAILY cyanocobalamin (vitamin B-12) 1,000 mcg PO DAILY 30 days metformin 1,000 mg (2 x 500 mg) PO BID metoprolol succinate ER 100 mg PO DAILY multivitamin 1 tab PO DAILY multivitamin with folic acid 400 mcg (Daily-Jose (with folic acid)) 1 tab PO DAILY repaglinide 0.5 mg PO QPM 90 days simvastatin 40 mg PO BEDTIME 90 days Tobacco use date assessed: 04/25/23 Fall risk assessment: No Falls in past year Last assessed Fall Risk: 04/25/23 Dental Screening Dental Screen Date: 04/25/23 Did you have a dental visit in the last 12 months?: No Did you have a dental problem in the last 6 months where you did not have access to dental care?: No Was dental information given to patient?: No HPI HTN, DM, hyperlipidemia HPI Details Patient comes in today for his follow up visit States that he feels okay Has noticed that his blood pressure is running higher than usual lately He denies any headaches or dizziness Denies any chest pains, no SOB No nausea/vomiting, no abdominal pain No change in bowel habits noted Had his follow up labs done a couple of weeks ago - to discuss his results FOR[facility], [facility] Medical History Cardiomyopathy Overweight (BMI 25.0-29.9) Tachycardia-bradycardia syndrome Vitamin D deficiency Pure hypercholesterolemia Diabetes mellitus Benign essential hypertension Diabetes type 2, uncontrolled Hypospadias in male Melanocytic nevus Actinic keratoses History of anemia History of colon cancer Wears partial dentures BPH (benign prostatic hyperplasia) Hyperlipidemia, unspecified Type 2 diabetes mellitus with unspecified complications Essential hypertension NSVT (nonsustained ventricular tachycardia) Normally functioning cardiac pacemaker present Surgical History History of partial colectomy (~2013) Hx of tonsillectomy Hx of appendectomy H/O colonoscopy History of cardiac pacemaker (~2011) Family History Father Diabetes Heart disease Hypertension Mother Hypertension CVD (cardiovascular disease) Diabetes Social History Household Members: Significant Other Alcohol intake: current Alcohol intake frequency: holidays/special occasions only Patient Tobacco Use Status: Former Tobacco user Quit Date: 12 years ago e-Cigarette/Vaping Use: Never Used Cognitive needs: No Hearing needs: No Vision needs: No Questionnaire PHQ-9 Over the last 2 weeks, how often have you been bothered by any of the following problems? 1. Little interest or pleasure in doing things: not at all 2. Feeling down, depressed, or hopeless: not at all 3. Trouble falling or staying asleep, or sleeping too much: not at all 4. Feeling tired or having little energy: not at all 5. Poor appetite or overeating: not at all 6. Feeling bad about yourself - or that you are a failure or have let yourself or your family down: not at all 7. Trouble concentrating on things, such as reading the newspaper or watching television: not at all 8. Moving or speaking so slowly that other people could have noticed. Or the opposite - being so fidgety or restless that you have been moving around a lot more than usual: not at all 9. Thoughts that you would be better off or of hurting yourself in some way: not at all Total score: 0 Depression Screening Interpretation: Negative 24409 - PHQ-9 Billing: Yes Source: Developed by Drs. Tobin White, Sangita Chawla, Vin Nelson and colleagues, with an educational filiberto from [employer]. Thrive Questionnaire Date Thrive assessed: 04/25/23 I am a: Patient What is your living situation today?: I have a steady place to live Within the past 12 months, did the food you bought not last and you didn't have the money to get more?: Never true Within the past 12 months, did you worry whether your food would run out before you got money to buy more?: Never true Do you have trouble paying for medicines?: No Do you have trouble getting transportation to medical appointments?: No Do you have trouble paying your heating and electricity bill?: No Do you have trouble taking care of your child, family member or friend?: No Do you have trouble with day-to-day activities such as bathing, preparing meals, shopping, managing finances, etc.?: No Are you currently unemployed and looking for a job?: No Are you interested in more education?: No Please select the resources that you would like help with: None Currently or been in a relationship where the following occur: no concerns reported AUDIT C Alcohol Use Questionnaire (AUDIT-C) 1. How often do you have a drink containing alcohol?: Monthly or less 2. How many drinks containing alcohol do you have on a typical day when you are drinking?: 1 or 2 3. How often do you have six or more drinks on one occasion?: Never Total Score: 1 Score Reviewed/Action Taken: Yes JOHNNY-7 AMB Questionnaire JOHNNY-7 Date JOHNNY - 7 assessed: 04/25/23 Feeling nervous, anxious, or on edge: 0 = Not at all Not being able to stop or control worryin = Not at all Worrying too much about different things: 0 = Not at all Trouble relaxin = Not at all Being so restless that it is hard to sit still: 0 = Not at all Becoming easily annoyed or irritable: 0 = Not at all Feeling afraid as if something awful might happen: 0 = Not at all Total JOHNNY-7 score (0-4 normal; 5-9 mild; 10-14 moderate; 15-21 severe): 0 Source: Developed by Drs. Tobin White, Sangita Chawla, Vin Nelson and colleagues, with an educational filiberto from [employer]. Review of Systems Const Denies fatigue, Denies fever(s) and Denies headache(s) ENT Denies dysphagia, Denies dizziness, Denies otalgia, Denies headache(s), Denies neck pain, Denies odynophagia and Denies sore throat Card Denies chest pain, Denies palpitations and Denies dyspnea Resp Denies cough and Denies dyspnea GI Denies abdominal pain, Denies constipation, Denies dysphagia, Denies heartburn, Denies diarrhea, Denies nausea, Denies odynophagia and Denies vomiting Denies dysuria, Denies nocturia and Denies urinary frequency Musc Denies neck pain Neuro Denies dizziness and Denies headache(s) Endo Denies fatigue and Denies palpitations Physical exam (Primary Care) Vital Signs: Last Vital Signs Pulse 80 04/25/23 10:39 BP 148/92 H 04/25/23 10:39 Pulse Ox 95 04/25/23 10:39 Oxygen Delivery Method Room Air 04/25/23 10:39 BMI result Body Mass Index 26.7 Tobacco/Smoking Status: Tobacco use Status Tobacco use date assessed 04/25/23 04/25/23 10:41 Patient Tobacco Use Status Former Tobacco user 04/25/23 10:41 e-Cigarette/Vaping Use Never Used 04/25/23 10:41 PHQ-9: PHQ-9 Score PHQ-9: Total score 0 04/25/23 11:39 Depression Screening Interpretation: Negative Thrive Assessment: Date of Thrive Assessment Date Thrive assessed 04/25/23 04/25/23 10:41 Currently or been in a relationship where the following occur: no concerns reported Const General: no acute distress and alert HENMT Ears: TM's normal bilaterally and EAC's normal Throat: Yes posterior oropharynx normal and Yes tonsils normal (no TP congestion) Neck Neck: Yes no lymphadenopathy and Yes supple Resp Auscultation: clear to auscultation bilaterally, no rales and no wheezes Cardio Rate: regular rate Rhythm: regular rhythm Heart sounds: no murmurs GI Palpation (GI): Soft to palpation, nontender and No hepatosplenomegaly present Skin General skin exam: no rashes or lesions noted Extrem General: Yes no clubbing, cyanosis or edema Immunizations tetanus-diphtheria toxoids-Td 2 Lf unit-2 Lf unit/0.5 mL IM suspension Performing Provider: Silvano Peck MD Performing Location: [facility] Administered by: DANIEL Garcia on 04/25/23 11:46 Dose Route Admin Location Dispensed Lot Number Expiration Date NDC Sealing And Canceling 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 Operator 0.5 mL IM Left Deltoid 0.5 mL [id number] 12/04/23 [address]-2 [employer] VIS Given Date VIS Provided VIS Publication Date 04/25/23 Single Vaccine 21 Eligibility Eligibility Date Funding Source Not VFC Eligible 04/25/23 State funds Results Reviewed Results Reviewed: Laboratory Tests 04/14/23 09:00 WBC 6.4 Hgb 15.0 Hct 43.7 Plt Count 184 Sodium 139 Potassium 3.9 Creatinine 0.84 Estimated GFR > 60 Fasting Glucose 114 H Hemoglobin A1c % 5.8 Calcium 10.7 H AST 21 ALT 18 Triglycerides 115 Cholesterol 129 LDL Cholesterol, Calc 61 HDL Cholesterol 45 Prostate Specific Ag 4.29 H Assessment and Plan Assessment & Plan (1) Benign essential hypertension: Code(s): I10 - Essential (primary) hypertension Plan: Reinforced low sodium diet - goal is systolic BP of at least 140 to 150 mm He is concerned about his blood pressure running higher than usual lately whenever he checks it; states that he has tried taking some of his leftover Lisinopril 40 mg at times when his blood pressure runs high Have advised patient NOT to do this as both Lisinopril and Benazepril are Alan-inhibitors and taking 2 different Alan-inhibitors is not going to help improve his BP and may in fact cause some problems for his kidneys in the long run Continue Metoprolol ER 100 mg QD and Benazepril 40 mg QD Will start him additionally on Amlodipine 2.5 mg QD Patient is reminded to continue monitoring his blood pressure regularly (2) Diabetes mellitus: Code(s): E11.9 - Type 2 diabetes mellitus without complications Qualifiers: Diabetes mellitus complication status: without complication Diabetes mellitus middle or intermediate school principal insulin use: without middle or intermediate school principal use Diabetes mellitus type: type 2 Qualified Code(s): E11.9 - Type 2 diabetes mellitus without complications Plan: HgbA1c was at 5.8% on his labs done a couple of weeks ago (in-office HgbA1c was at 6.2% when last checked in July 2021) - goal is <7.0% Reinforced diabetic diet Continue Metformin 500 mg 2 tablets BID (3) Pure hypercholesterolemia: Code(s): E78.00 - Pure hypercholesterolemia, unspecified Plan: Results of his labs done a couple of weeks ago reviewed and discussed with patient Reinforced low cholesterol diet Continue Simvastatin 40 mg QD Will recheck his labs and fasting lipids in 6 months for follow up (4) Hypercalcemia: Code(s): E83.52 - Hypercalcemia Plan: Will monitor this closely for now - patient is currently asymptomatic Will recheck his Vitamin D level in 6 months time to help determine if his hypercalcemia is primary or secondary Will also check his intact PTH level for further evaluation then (5) Vitamin D deficiency: Code(s): E55.9 - Vitamin D deficiency, unspecified Plan: Continue Vitamin D3 1000 units daily Will recheck his Vitamin D level in 6 months for follow up (6) Tachycardia-bradycardia syndrome: Code(s): I49.5 - Sick sinus syndrome Plan: No recurrence of symptoms recently Continue Metoprolol ER 100 mg QD Follow up with cardiology as scheduled (7) Overweight (BMI 25.0-29.9): Code(s): E66.3 - Overweight Plan: Reinforced diet/exercise as tolerated/lose weight Plan Td booster given today Follow up in 6 months Orders: Orders Complete Blood Count Auto Diff 6 Months I10 - Essential (primary) hypertension Comprehensive [place]. Panel Fast 6 Months E78.00 - Pure hypercholesterolemia, unspecified Hemoglobin A1c 6 Months E11.9 - Type 2 diabetes mellitus without complications Vitamin D 25-OH Total 6 Months E55.9 - Vitamin D deficiency, unspecified TSH reflex Free T4 6 Months E78.00 - Pure hypercholesterolemia, unspecified UA CC w/rflx Micro + Cult 6 Months R30.0 - Dysuria Lipid Panel 6 Months E78.00 - Pure hypercholesterolemia, unspecified Microalbumin, Random (w Creat) 6 Months E11.9 - Type 2 diabetes mellitus without complications PTHI 6 Months E83.52 - Hypercalcemia Td State Immunization Today Z23 - Encounter for immunization Medications: New amlodipine 2.5 mg PO DAILY 90 days 90 tabs 1RF Coding Level of Care Code Est Pt Level 4 (04282) Diagnoses Benign essential hypertension I10 Type 2 diabetes mellitus without complication, without long-term current use of insulin E11.9 Diabetes mellitus complication status: without complication Diabetes mellitus correction insulin use: without middle or intermediate school principal use Diabetes mellitus type: type 2 Pure hypercholesterolemia E78.00 Hypercalcemia E83.52 Vitamin D deficiency E55.9 Tachycardia-bradycardia syndrome I49.5 Overweight (BMI 25.0-29.9) E66.3
== END 2023-04-25 11:48 | disposition home or self-care (01) ==
PROVIDERS: PCP Internal Medicine; Visit Provider Internal Medicine
DX: I10 Essential (primary) hypertension (principal); E11.9 Type 2 diabetes mellitus without complications; E83.52 Hypercalcemia; I49.5 Sick sinus syndrome; Z23 Encounter for immunization; E78.00 Pure hypercholesterolemia, unspecified; E66.3 Overweight
CPT/HCPCS: 90471; 90714; 99214

== ENCOUNTER 2023-04-26 08:31 | Outpatient (AMB) | payer MEDICARE, SELFPAY ==
--- NOTE | 2023-04-26 08:35 | MHC.OFFVIS ---
Intake Intake Visit Reasons: 1Y PSA(set) Intake Note: Patient is Present for Follow Up PSA/PVR Urology Medication: None Antibiotic Allergies: None Blood Thinners:Aspirin Pharmacy: [facility] PVR: 235ML Allergies No Known Allergies Allergy (Verified 04/26/23 08:36) Medication List - Last Reconciled 04/26/23 by Esdras Paredes MD amlodipine 2.5 mg PO DAILY 90 days aspirin 81 mg PO DAILY benazepril 40 mg PO DAILY 90 days blood pressure monitor (Blood Pressure Kit) As directed cholecalciferol (vitamin D3) 25 mcg PO DAILY cyanocobalamin (vitamin B-12) 1,000 mcg PO DAILY 30 days metformin 1,000 mg (2 x 500 mg) PO BID metoprolol succinate ER 100 mg PO DAILY multivitamin 1 tab PO DAILY multivitamin with folic acid 400 mcg (Daily-Jose (with folic acid)) 1 tab PO DAILY repaglinide 0.5 mg PO QPM 90 days simvastatin 40 mg PO BEDTIME 90 days HPI HPI Comments History of Present Illness Details Nasim is very pleasant male. He is seen for the following urologic conditions - BPH - coronal hypospadias - variable PSA Twelve month follow-up PSA 4.3 - up from 3.3 High PVR 235 UA today high leukocytes Normal SANJIV Background diabetes, Trial terazosin and finasteride Two month follow-up repeat PSA Lower urinary tract symptoms Current Visit is further evaluation of lower urinary tract symptoms Baseline with nocturia 1 and known trilobar hypertrophy and occasional frequency Cystoscopy - prior diagnosis trilobar hypertrophy No family history PSA - historically in 2-3 range - 10/18 3.1, 04/20 2.9, 04/21 3.3, 04/22 4.3 Therapeutic plan continue yearly evaluation [facility] Medical History Cardiomyopathy Overweight (BMI 25.0-29.9) Tachycardia-bradycardia syndrome Vitamin D deficiency Pure hypercholesterolemia Diabetes mellitus Benign essential hypertension Diabetes type 2, uncontrolled Hypospadias in male Melanocytic nevus Actinic keratoses History of anemia History of colon cancer Wears partial dentures BPH (benign prostatic hyperplasia) Hyperlipidemia, unspecified Type 2 diabetes mellitus with unspecified complications Essential hypertension NSVT (nonsustained ventricular tachycardia) Normally functioning cardiac pacemaker present Surgical History History of partial colectomy (~2013) Hx of tonsillectomy Hx of appendectomy H/O colonoscopy History of cardiac pacemaker (~2011) Family History Father Diabetes Heart disease Hypertension Mother Hypertension CVD (cardiovascular disease) Diabetes Social History Household Members: Significant Other Alcohol intake: current Alcohol intake frequency: holidays/special occasions only Patient Tobacco Use Status: Former Tobacco user Quit Date: 12 years ago e-Cigarette/Vaping Use: Never Used Cognitive needs: No Hearing needs: No Vision needs: No Review of Systems Const Denies chills and Denies fever(s) Card Reports no additional complaints and Denies syncope Resp Denies cough GI Denies abdominal pain and Denies heartburn Reports as per HPI and Denies change in libido Neuro Denies syncope Psych Denies change in libido Endo Denies change in libido Physical Exam Const General: cooperative, healthy appearing, comfortable and no acute distress Orientation/consciousness: patient oriented x3 HEENT Face and sinus: Yes normal facial exam Mouth: moist mucous membranes Neck Neck: Yes normal visual inspection, Yes full ROM and Yes trachea midline Chest Chest palpation & inspection: normal inspection of the chest Resp Effort & Inspection: normal respiratory effort, able to speak in complete sentences and no respiratory distress GI Inspection: Yes normal to inspection Rectal Exam - Male: Yes normal sphincter tone and Yes prostate normal Male General Exam: Yes normal external exam Penis: normal penis and circumcised Meatus: meatus normal Scrotum: scrotum normal Testes: Testes normal Back/Spine/Pelvis Cervical Spine: normal cervical lordosis Thoracic/Lumbar Spine: thoracic and lumbar spine normal to inspection Skin General skin exam: no rashes or lesions noted Neuro General: patient oriented x3, gait normal, tone normal and moves all extremities Extrem General: Yes normal to inspection and Yes capillary refill normal Office Procedures Post Void Residual Post Residual Void Post Void Residual (PVR): 235 12049-Gufv Void Residual by ultrasound Results AMB Urinalysis, Automated UA Leukoctes 500 Stephanie/uL Last Edit by DANIEL Sanchez on 04/26/23 08:48 UA Nitrite Negative Last Edit by DANIEL Sanchez on 04/26/23 08:48 UA Urobilinogen 0.2 mg/dL Last Edit by Isis Lewis, RMA on 04/26/23 08:48 UA Protein 30 mg/dL Last Edit by Isis Lewis, RMA on 04/26/23 08:48 UA pH 6.0 Last Edit by Isis Lewis, RMA on 04/26/23 08:48 UA Blood 10 Valentín/uL Last Edit by Isis Lewis, RMA on 04/26/23 08:48 UA Specific [place] 1.015 Last Edit by Isis Lewis, RMA on 04/26/23 08:48 UA Ketone Negative Last Edit by Isis Lewis, RMA on 04/26/23 08:48 UA Bilirubin 0 mg/dL Last Edit by Isis Lewis, RMA on 04/26/23 08:48 UA Glucose 0 mg/dL Last Edit by Isis Lewis, A on 04/26/23 08:48 Assessment & Plan Assessment & Plan (1) Incomplete emptying of bladder due to benign prostatic hyperplasia: Code(s): N40.1 - Benign prostatic hyperplasia with lower urinary tract symptoms; R33.9 - Retention of urine, unspecified (2) Elevated PSA: Code(s): R97.20 - Elevated prostate specific antigen [PSA] Plan Trial medications Follow-up PVR PSA Orders: Orders PSA,Total (Free>4and<10) 2 Months R97.20 - Elevated prostate specific antigen [PSA] AMB Urinalysis Automated Today Z13.9 - Encounter for screening, unspecified AMB Post Void Residual by ultrasound Today N40.0 - Benign prostatic hyperplasia without lower urinary tract symptoms Medications: New finasteride 5 mg PO DAILY 30 tabs 1RF 30 days N40.1 - Benign prostatic hyperplasia with lower urinary tract symptoms, R33.9 - Retention of urine, unspecified terazosin 5 mg PO BEDTIME 30 caps 1RF 30 days N40.1 - Benign prostatic hyperplasia with lower urinary tract symptoms, R33.9 - Retention of urine, unspecified, R35.0 - Frequency of micturition Patient Instructions: Imaging studies, laboratory and physical exam results were discussed and reviewed in detail. No major barriers to patient understanding were identified. An opportunity to ask questions regarding the treatment plan was provided. All questions were answered. The patient expressed understanding and agreement with the above treatment plan. The patient is aware they should contact our office by phone for worsening of their current condition or the appearance of new urologic symptoms. Compliance is encouraged with any medications and followup testing that is ordered. It is a privilege to participate in the urologic care of your patient. If you have any questions or concerns regarding treatment for the above conditions, or other urologic issues, please do not hesitate to contact me. The office telephone contact is [phone]. This note is constructed using voice recognition software. While every effort has been made to ensure accuracy dry chain offbearer errors may have been included. Yours sincerely, Dr Esdras Paredes MD, [facility] - Urology Providers of Expert, Compassionate Care for the Genitourinary System Coding Level of Care Code Est Pt Level 4 (37266) Diagnoses Incomplete emptying of bladder due to benign prostatic hyperplasia N40.1; R33.9 Elevated PSA R97.20 CPT Codes Post Residual Void - PVR CPT Code: 62485-Afjo Void Residual by ultrasound ([id number])
== END 2023-04-26 08:53 | disposition home or self-care (01) ==
PROVIDERS: PCP Internal Medicine; Visit Provider Urology
DX: N40.1 Benign prostatic hyperplasia with lower urinary tract symptoms (principal); R33.9 Retention of urine, unspecified; R97.20 Elevated prostate specific antigen [PSA]; Z13.9 Encounter for screening, unspecified
CPT/HCPCS: 99214

== ENCOUNTER → 2023-04-26 08:31 | Outpatient (BNVA) | payer MEDICARE, SELFPAY | PROVIDERS: Visit Provider Urology | DX: N40.1 Benign prostatic hyperplasia with lower urinary tract symptoms (principal); N13.8 Other obstructive and reflux uropathy; R97.20 Elevated prostate specific antigen [PSA]; R33.9 Retention of urine, unspecified; Q54.0 Hypospadias, balanic; D72.829 Elevated white blood cell count, unspecified | CPT/HCPCS: 51798; 81003; 99212 ==

== ENCOUNTER 2023-06-20 08:32 | Outpatient (REF) | payer MEDICARE, SELFPAY ==
[2023-06-20 08:56] LABS: MANUAL DIFF FLAG NO
[2023-06-20 09:34] LABS: Basophils Percent Auto 0.6 % (0-2); Eosinophils Absolute Auto 0.2 X10*3/uL (0.0-0.4); Eosinophils Percent Auto 3.1 % (0-4); Hematocrit 41.4 % (42.0-52.0); Hemoglobin 13.8 g/dl (14.0-18.0); Imm Gran Abs Auto 0.02 X10*3/uL (0.00-0.03); Imm Gran Pct Auto 0.3 % (0.0-0.4); Lymphocytes Absolute Auto 1.6 X10*3/uL (1.2-4.9); Lymphocytes Percent Auto 24.4 % (20-40); Mean Corpuscular HGB Conc 33.3 g/dl (31.0-36.0); Mean Corpuscular Hemoglobin 29.9 pg (27.0-33.0); Mean Corpuscular Volume 89.6 fL (80.0-98.0); Mean Platelet Volume 10.4 fL (9.4-12.4); Monocytes Absolute Auto 0.6 X10*3/uL (0.1-1.2); Monocytes Percent Auto 9.8 % (2-11); Neutrophils Absolute Auto 3.9 x10*3/uL (2.0-8.3); Neutrophils Percent Auto 61.8 % (45-73); Platelet Count 189 X10*3/uL (160-400); Red Blood Count 4.62 X10*6/uL (4.60-5.80); Red Cell Distribution Width 12.7 % (11.0-16.0); White Blood Count 6.4 X10*3/uL (4.8-10.8)
[2023-06-20 09:41] LABS: Estimated Average Glucose 128 mg/dL; Hemoglobin A1c % 6.1 % (<6.0)
[2023-06-20 09:45] LABS: Appearance Urine Clear; Color Urine Yellow; Glucose Urine UA Negative (Negative); Leukocyte Esterase Urine Moderate (2+) (Negative); Nitrite Urine Negative (Negative); PH 5.5 (5.0-9.0); Specific Gravity - Urine 1.015 (1.005-1.025); UMIC TRIGGER UACC YES; Urine Blood Negative (Negative); Urine Ketones Negative (Negative); Urine Protein Negative (Neg-Trace)
[2023-06-20 10:04] LABS: Alanine Aminotransferase 21 U/L (0-40); Albumin Level 4.2 g/dL (3.5-5.0); Alkaline Phosphatase 69 U/L (39-117); Anion Gap 9 (12-20); Aspartate Amino Transferase 21 U/L (5-37); Bilirubin Total 0.6 mg/dL (0.0-1.0); Blood Urea Nitrogen 14 mg/dL (9-16); Calcium 10.3 mg/dL (8.4-10.2); Carbon Dioxide 27 mmol/L (22-29); Chloride 109 mmol/L (96-108); Cholesterol 118 mg/dL (<200); Estimated Glomerular Filt Rate > 60; Glucose Fasting 131 mg/dL (60-99); HDL Cholesterol 42 mg/dL (>40); LDL Cholesterol Calculated 56 mg/dL (<100); Potassium 4.2 mmol/L (3.3-5.1); Sodium 141 mmol/L (135-145); Total Protein 7.6 g/dL (6.5-8.0); Triglycerides 101 mg/dL (<150)
[2023-06-20 10:11] LABS: Bacteria Urine 4+ (None Seen); Hyaline Casts Urine 0-2 /LPF (0-2); RBC Urine 0-2 /HPF (0-2); Squamous Epithelial Cell Urine 0-2 /HPF (0-2); UACC Culture Trigger YES; WBC Urine >50 /HPF (0-5)
[2023-06-20 10:25] LABS: Creatinine Urine 91.38 mg/dL; Microalbum/Creatinine Ratio Ur 16.4 ug/mg cr (<30)
[2023-06-20 10:25] LABS: Vitamin D 25-OH Total 20.3 ng/mL (>30)
== END 2023-06-20 08:33 | disposition home or self-care (01) ==
LOC: HO.LAB 08:32
PROVIDERS: PCP Internal Medicine; Visit Provider Urology
DX: R97.20 Elevated prostate specific antigen [PSA] (principal); I10 Essential (primary) hypertension; E78.00 Pure hypercholesterolemia, unspecified; E11.9 Type 2 diabetes mellitus without complications; E55.9 Vitamin D deficiency, unspecified; R30.0 Dysuria; Z12.5 Encounter for screening for malignant neoplasm of prostate
CPT/HCPCS: 36415; 80053; 80061; 81001; 82043; 82306; 82570; 83036; 84153; 84443; 85025; 87086

== ENCOUNTER 2023-06-28 13:26 | Outpatient (AMB) | payer MEDICARE, SELFPAY ==
--- NOTE | 2023-06-28 13:28 | A.OFFVIS_ITS ---
Intake Intake Visit Reasons: PSA/PVR follow up(set) Intake Note: Patient is Present for Follow Up PSA/PVR Urology Medication: None Antibiotic Allergies: None Blood Thinners:Aspirin Pharmacy: [facility] PVR: 24 ML Java Lead Developer Required: No Accompanied by: Self / Same As Patient Allergies No Known Allergies Allergy (Verified 06/28/23 13:28) Medication List - Last Reconciled 06/28/23 by Esdras Paredes MD amlodipine 2.5 mg PO DAILY 90 days aspirin 81 mg PO DAILY benazepril 40 mg PO DAILY 90 days blood pressure monitor (Blood Pressure Kit) As directed cholecalciferol (vitamin D3) 25 mcg PO DAILY cyanocobalamin (vitamin B-12) 1,000 mcg PO DAILY 30 days finasteride 5 mg PO DAILY 90 days metformin 1,000 mg (2 x 500 mg) PO BID metoprolol succinate ER 100 mg PO DAILY multivitamin 1 tab PO DAILY multivitamin with folic acid 400 mcg (Daily-Jose (with folic acid)) 1 tab PO DAILY repaglinide 0.5 mg PO QPM 90 days simvastatin 40 mg PO BEDTIME 90 days terazosin 5 mg PO BEDTIME 90 days HPI HPI Comments History of Present Illness Details Nasim is very pleasant male. He is seen for the following urologic conditions - BPH - coronal hypospadias - variable PSA Great response to terazosin finasteride PSA 1.9 PVR 24 Significantly improved symptoms Continue medications Did discuss prostate procedures Lower urinary tract symptoms Current Visit is further evaluation of lower urinary tract symptoms Baseline with nocturia 1 and known trilobar hypertrophy and occasional frequency Cystoscopy - prior diagnosis trilobar hypertrophy Prior PVR approximately 200 No family history PSA - historically in 2-3 range - 10/18 3.1, 04/20 2.9, 04/21 3.3, 04/22 4.3 , 06/22 1.9 Therapeutic plan continue yearly evaluation [facility] Medical History Cardiomyopathy Overweight (BMI 25.0-29.9) Tachycardia-bradycardia syndrome Vitamin D deficiency Pure hypercholesterolemia Diabetes mellitus Benign essential hypertension Diabetes type 2, uncontrolled Hypospadias in male Melanocytic nevus Actinic keratoses History of anemia History of colon cancer Wears partial dentures BPH (benign prostatic hyperplasia) Hyperlipidemia, unspecified Type 2 diabetes mellitus with unspecified complications Essential hypertension NSVT (nonsustained ventricular tachycardia) Normally functioning cardiac pacemaker present Surgical History History of partial colectomy (~2013) Hx of tonsillectomy Hx of appendectomy H/O colonoscopy History of cardiac pacemaker (~2011) Family History Father Diabetes Heart disease Hypertension Mother Hypertension CVD (cardiovascular disease) Diabetes Social History Household Members: Significant Other Alcohol intake: current Alcohol intake frequency: holidays/special occasions only Patient Tobacco Use Status: Former Tobacco user Quit Date: 12 years ago e-Cigarette/Vaping Use: Never Used Cognitive needs: No Hearing needs: No Vision needs: No Review of Systems Const Denies chills and Denies fever(s) Card Reports no additional complaints and Denies syncope Resp Denies cough GI Denies abdominal pain and Denies heartburn Reports as per HPI and Denies change in libido Neuro Denies syncope Psych Denies change in libido Endo Denies change in libido Physical Exam Const General: cooperative, healthy appearing, comfortable and no acute distress Orientation/consciousness: patient oriented x3 HEENT Face and sinus: Yes normal facial exam Mouth: moist mucous membranes Neck Neck: Yes normal visual inspection, Yes full ROM and Yes trachea midline Chest Chest palpation & inspection: normal inspection of the chest Resp Effort & Inspection: normal respiratory effort, able to speak in complete sentences and no respiratory distress GI Inspection: Yes normal to inspection Back/Spine/Pelvis Cervical Spine: normal cervical lordosis Thoracic/Lumbar Spine: thoracic and lumbar spine normal to inspection Skin General skin exam: no rashes or lesions noted Neuro General: patient oriented x3, gait normal, tone normal and moves all extremities Extrem General: Yes normal to inspection and Yes capillary refill normal Office Procedures Post Void Residual Post Residual Void Post Void Residual (PVR): 24 [id number] Void Residual by ultrasound Assessment & Plan Assessment & Plan (1) Incomplete emptying of bladder due to benign prostatic hyperplasia: Code(s): N40.1 - Benign prostatic hyperplasia with lower urinary tract symptoms; R33.9 - Retention of urine, unspecified (2) Elevated PSA: Code(s): R97.20 - Elevated prostate specific antigen [PSA] Plan Six month follow-up Orders: Orders Prostate Specific Antigen 6 Months N40.1 - Benign prostatic hyperplasia with lower urinary tract symptoms, R33.9 - Retention of urine, unspecified AMB Post Void Residual by ultrasound Today N39.8 - Other specified disorders of urinary system Patient Instructions: Imaging studies, laboratory and physical exam results were discussed and reviewed in detail. No major barriers to patient understanding were identified. An opportunity to ask questions regarding the treatment plan was provided. All questions were answered. The patient expressed understanding and agreement with the above treatment plan. The patient is aware they should contact our office by phone for worsening of their current condition or the appearance of new urologic symptoms. Compliance is encouraged with any medications and followup testing that is ordered. It is a privilege to participate in the urologic care of your patient. If you have any questions or concerns regarding treatment for the above conditions, or other urologic issues, please do not hesitate to contact me. The office telephone contact is [phone]. This note is constructed using voice recognition software. While every effort has been made to ensure accuracy medical records receptionist errors may have been included. Yours sincerely, Dr Esdras Paredes MD, [facility] - Urology Providers of Expert, Compassionate Care for the Genitourinary System Coding Level of Care Code Est Pt Level 3 (90152) Diagnoses Incomplete emptying of bladder due to benign prostatic hyperplasia N40.1; R33.9 Elevated PSA R97.20 CPT Codes Post Residual Void - PVR CPT Code: 05074-Oxlm Void Residual by ultrasound ([id number])
== END 2023-06-28 14:11 | disposition home or self-care (01) ==
PROVIDERS: PCP Internal Medicine; Visit Provider Urology
DX: N40.1 Benign prostatic hyperplasia with lower urinary tract symptoms (principal); R33.9 Retention of urine, unspecified; R97.20 Elevated prostate specific antigen [PSA]
CPT/HCPCS: 99213

== ENCOUNTER → 2023-06-28 13:26 | Outpatient (BNVA) | payer MEDICARE, SELFPAY | PROVIDERS: PCP Internal Medicine; Visit Provider Urology | DX: N40.1 Benign prostatic hyperplasia with lower urinary tract symptoms (principal); R33.9 Retention of urine, unspecified; R97.20 Elevated prostate specific antigen [PSA] | CPT/HCPCS: 51798; 99212 ==

== ENCOUNTER → 2023-08-03 10:35 | Outpatient (REF) | payer MEDICARE, SELFPAY | LOC: HO.CARD 10:35 | PROVIDERS: PCP Internal Medicine; Visit Provider Internal Medicine | DX: I42.9 Cardiomyopathy, unspecified (principal) | CPT/HCPCS: 93306; 93356 ==

== ENCOUNTER → 2023-08-03 23:59 | Outpatient (BNV) | payer MEDICARE, SELFPAY ==
--- NOTE | 2023-08-09 12:13 | MHC.OFFVIS ---
Intake Intake Visit Reasons: Remote Device Check- [facility] Allergies No Known Allergies Allergy (Verified 06/28/23 13:28) [facility] Medical History Cardiomyopathy Overweight (BMI 25.0-29.9) Tachycardia-bradycardia syndrome Vitamin D deficiency Pure hypercholesterolemia Diabetes mellitus Benign essential hypertension Diabetes type 2, uncontrolled Hypospadias in male Melanocytic nevus Actinic keratoses History of anemia History of colon cancer Wears partial dentures BPH (benign prostatic hyperplasia) Hyperlipidemia, unspecified Type 2 diabetes mellitus with unspecified complications Essential hypertension NSVT (nonsustained ventricular tachycardia) Normally functioning cardiac pacemaker present Surgical History History of partial colectomy (~2013) Hx of tonsillectomy Hx of appendectomy H/O colonoscopy History of cardiac pacemaker (~2011) Family History Father Diabetes Heart disease Hypertension Mother Hypertension CVD (cardiovascular disease) Diabetes Social History Household Members: Significant Other Alcohol intake: current Alcohol intake frequency: holidays/special occasions only Patient Tobacco Use Status: Former Tobacco user Quit Date: 12 years ago e-Cigarette/Vaping Use: Never Used Cognitive needs: No Hearing needs: No Vision needs: No Office Procedures Cardiac Device Check Cardiac Device Check Details: Date of service- 08/03/2023 ; Battery life >7 years; normal lead parameters; AP 14%; SOFTWARE VALIDATION ENGINEER >99%; no significant arrhythmias. Overall normal device function. [id number] Cardiac Device Interrogation, pacemaker Procedure code (CPT) selection complete Assessment & Plan Assessment & Plan (1) Heart block: Code(s): I45.9 - Conduction disorder, unspecified Plan x Coding Level of Care Code Procedure Only Diagnoses Heart block I45.9 CPT Codes Cardiac Device Check - Cardiac Device 12: [id number] Cardiac Device Interrogation, pacemaker ([id number])
== END ==
PROVIDERS: PCP Internal Medicine; Visit Provider Internal Medicine
DX: I45.9 Conduction disorder, unspecified (principal); Z95.0 Presence of cardiac pacemaker
CPT/HCPCS: 93294; 93306

== ENCOUNTER 2023-10-17 09:26 | Outpatient (REF) | payer MEDICARE, SELFPAY ==
[2023-10-17 09:38] LABS: MANUAL DIFF FLAG NO
[2023-10-17 10:00] LABS: Basophils Percent Auto 0.6 % (0-2); Eosinophils Absolute Auto 0.2 X10*3/uL (0.0-0.4); Eosinophils Percent Auto 3.2 % (0-4); Hematocrit 43.4 % (42.0-52.0); Imm Gran Abs Auto 0.02 X10*3/uL (0.00-0.03); Imm Gran Pct Auto 0.3 % (0.0-0.4); Lymphocytes Absolute Auto 1.9 X10*3/uL (1.2-4.9); Lymphocytes Percent Auto 27.4 % (20-40); Mean Corpuscular HGB Conc 34.6 g/dl (31.0-36.0); Mean Corpuscular Hemoglobin 29.9 pg (27.0-33.0); Mean Corpuscular Volume 86.5 fL (80.0-98.0); Mean Platelet Volume 9.9 fL (9.4-12.4); Monocytes Absolute Auto 0.8 X10*3/uL (0.1-1.2); Neutrophils Percent Auto 56.5 % (45-73); Platelet Count 197 X10*3/uL (160-400); Red Blood Count 5.02 X10*6/uL (4.60-5.80); Red Cell Distribution Width 12.8 % (11.0-16.0)
[2023-10-17 10:04] LABS: Appearance Urine Cloudy; Color Urine Yellow; Glucose Urine UA Negative (Negative); Leukocyte Esterase Urine Moderate (2+) (Negative); Nitrite Urine Negative (Negative); PH 6.5 (5.0-9.0); Specific Gravity - Urine 1.015 (1.005-1.025); UMIC TRIGGER UACC YES; Urine Blood Negative (Negative); Urine Ketones Trace mg/dL (Negative); Urine Protein Negative (Neg-Trace)
[2023-10-17 10:09] LABS: Bacteria Urine 4+ (None Seen); Hyaline Casts Urine 0-2 /LPF (0-2); RBC Urine 0-2 /HPF (0-2); Squamous Epithelial Cell Urine 0-2 /HPF (0-2); UACC Culture Trigger YES; WBC Urine 21-50 /HPF (0-5)
[2023-10-17 10:48] LABS: Estimated Average Glucose 120 mg/dL; Hemoglobin A1C 150.1233 umol/L; Hemoglobin A1c % 5.8 % (<6.0)
[2023-10-17 11:09] LABS: Alanine Aminotransferase 20 U/L (0-40); Albumin Level 4.3 g/dL (3.5-5.0); Alkaline Phosphatase 71 U/L (39-117); Anion Gap 13 (12-20); Aspartate Amino Transferase 19 U/L (5-37); Bilirubin Total 0.8 mg/dL (0.0-1.0); Blood Urea Nitrogen 15 mg/dL (9-16); Calcium 9.9 mg/dL (8.4-10.2); Carbon Dioxide 23 mmol/L (22-29); Chloride 109 mmol/L (96-108); Cholesterol 146 mg/dL (<200); Estimated Glomerular Filt Rate > 60; Glucose Fasting 127 mg/dL (60-99); HDL Cholesterol 42 mg/dL (>40); LDL Cholesterol Calculated 78 mg/dL (<100); Sodium 141 mmol/L (135-145); Total Protein 7.6 g/dL (6.5-8.0); Triglycerides 134 mg/dL (<150)
[2023-10-17 11:13] LABS: Creatinine Urine 91.14 mg/dL; Microalbum/Creatinine Ratio Ur 18.6 ug/mg cr (<30)
[2023-10-17 11:26] LABS: TSH reflex Free T4 2.01 uIU/mL (0.32-4.0); Vitamin D 25-OH Total 8.2 ng/mL (>30)
== END 2023-10-17 09:27 | disposition home or self-care (01) ==
LOC: HO.LAB 09:26
PROVIDERS: PCP Internal Medicine; Visit Provider Internal Medicine
DX: E55.9 Vitamin D deficiency, unspecified (principal); E78.00 Pure hypercholesterolemia, unspecified; E11.9 Type 2 diabetes mellitus without complications; I10 Essential (primary) hypertension; R30.0 Dysuria; E83.52 Hypercalcemia
CPT/HCPCS: 36415; 80053; 80061; 81001; 81003; 82043; 82306; 82570; 83036; 84443; 85025; 87086

== ENCOUNTER 2023-10-24 10:29 | Outpatient (AMB) | payer MEDICARE, SELFPAY ==
--- NOTE | 2023-10-24 10:39 | A.OFFPC_ITS ---
Vital Signs 10/24/23 10:42 Height 6 ft Weight 199 lb 4 oz BMI 27.0 BP 120/70 Blood Pressure Location Lt brachial Position Sitting Pulse 70 Pulse Source Pulse Oximeter Pulse Oximetry (%) 95 Oxygen Delivery Method Room Air Intake Visit Reasons: 6 MONTH F/U Intake Note: Patient is here to follow up on DM, HTN, Cardiomyopathy Showcase Maker Required: No Globe Cleaner: Not Required per policy Accompanied by: Self / Same As Patient Allergies No Known Allergies Allergy (Verified 04/25/24 11:55) Medication List - Last Reconciled 10/24/23 by Silvano Peck MD amlodipine 2.5 mg PO DAILY 90 days aspirin 81 mg PO DAILY benazepril 40 mg PO DAILY 90 days blood pressure monitor (Blood Pressure Kit) As directed cholecalciferol (vitamin D3) 25 mcg PO DAILY cyanocobalamin (vitamin B-12) 1,000 mcg PO DAILY finasteride 5 mg PO DAILY 90 days metformin 1,000 mg (2 x 500 mg) PO BID metoprolol succinate ER 100 mg PO DAILY multivitamin with folic acid 400 mcg (Daily-Jose (with folic acid)) 1 tab PO DAILY repaglinide 0.5 mg PO QPM 90 days simvastatin 40 mg PO BEDTIME 90 days terazosin 5 mg PO BEDTIME 90 days Tobacco use date assessed: 10/24/23 Fall risk assessment: No Falls in past year Last assessed Fall Risk: 10/24/23 Dental Screening Dental Screen Date: 10/24/23 Did you have a dental visit in the last 12 months?: No Did you have a dental problem in the last 6 months where you did not have access to dental care?: No Was dental information given to patient?: No HPI 6 MONTH F/U HPI Details Patient comes in today for his follow up visit States that he feels okay He denies any headaches or dizziness Denies any chest pains, no SOB No nausea/vomiting, no abdominal pain No change in bowel habits noted Needs a couple of his Rx refilled today He had his follow up labs done last week - to discuss his results [facility] Medical History Cardiomyopathy Overweight (BMI 25.0-29.9) Tachycardia-bradycardia syndrome Vitamin D deficiency Pure hypercholesterolemia Diabetes mellitus Benign essential hypertension Diabetes type 2, uncontrolled Hypospadias in male Melanocytic nevus Actinic keratoses History of anemia History of colon cancer Wears partial dentures BPH (benign prostatic hyperplasia) Hyperlipidemia, unspecified Type 2 diabetes mellitus with unspecified complications Essential hypertension NSVT (nonsustained ventricular tachycardia) Normally functioning cardiac pacemaker present Surgical History History of partial colectomy (~2013) Hx of tonsillectomy Hx of appendectomy H/O colonoscopy History of cardiac pacemaker (~2011) Family History Father Diabetes Heart disease Hypertension Mother Hypertension CVD (cardiovascular disease) Diabetes Social History Household Members: Significant Other Housing: Condominium Alcohol intake: current Alcohol intake frequency: holidays/special occasions only Patient Tobacco Use Status: Former Tobacco user e-Cigarette/Vaping Use: Never Used Second Hand Smoke Exposure: Yes service: Yes Current occupational status: retired Cognitive needs: No Hearing needs: No Vision needs: Yes (Glasses) Questionnaire PHQ-9 Over the last 2 weeks, how often have you been bothered by any of the following problems? 1. Little interest or pleasure in doing things: not at all 2. Feeling down, depressed, or hopeless: not at all 3. Trouble falling or staying asleep, or sleeping too much: not at all 4. Feeling tired or having little energy: not at all 5. Poor appetite or overeating: not at all 6. Feeling bad about yourself - or that you are a failure or have let yourself or your family down: not at all 7. Trouble concentrating on things, such as reading the newspaper or watching television: not at all 8. Moving or speaking so slowly that other people could have noticed. Or the opposite - being so fidgety or restless that you have been moving around a lot more than usual: not at all 9. Thoughts that you would be better off or of hurting yourself in some way: not at all Total score: 0 Depression Screening Interpretation: Negative Depression Screening Done: Yes 48531 - PHQ-9 Billing: Yes Source: Developed by Drs. Tobin White, Vin Boyce and colleagues, with an educational filiberto from [employer]. Thrive Questionnaire Date Thrive assessed: 10/24/23 I am a: Patient What is your living situation today?: I have a steady place to live Within the past 12 months, did the food you bought not last and you didn't have the money to get more?: Never true Within the past 12 months, did you worry whether your food would run out before you got money to buy more?: Never true Do you have trouble paying for medicines?: No Do you have trouble getting transportation to medical appointments?: No Do you have trouble paying your heating and electricity bill?: No Do you have trouble taking care of your child, family member or friend?: No Do you have trouble with day-to-day activities such as bathing, preparing meals, shopping, managing finances, etc.?: No Are you currently unemployed and looking for a job?: No Are you interested in more education?: No Currently or been in a relationship where the following occur: no concerns reported THRIVE Score: 0 AUDIT C Alcohol Use Questionnaire (AUDIT-C) 1. How often do you have a drink containing alcohol?: Monthly or less 2. How many drinks containing alcohol do you have on a typical day when you are drinking?: 1 or 2 Total Score: 1 Score Reviewed/Action Taken: Yes JOHNNY-7 AMB Questionnaire JOHNNY-7 Date JOHNNY - 7 assessed: 10/24/23 Feeling nervous, anxious, or on edge: 0 = Not at all Not being able to stop or control worryin = Not at all Worrying too much about different things: 0 = Not at all Trouble relaxin = Not at all Being so restless that it is hard to sit still: 0 = Not at all Becoming easily annoyed or irritable: 0 = Not at all Feeling afraid as if something awful might happen: 0 = Not at all Total JOHNNY-7 score (0-4 normal; 5-9 mild; 10-14 moderate; 15-21 severe): 0 Source: Developed by Drs. Tobin White, Vin Boyce and colleagues, with an educational filiberto from [employer]. Review of Systems Const Denies chills, Denies fatigue, Denies fever(s) and Denies headache(s) ENT Denies dysphagia, Denies dizziness, Denies otalgia, Denies headache(s), Denies neck pain, Denies odynophagia and Denies sore throat Card Denies chest pain, Denies palpitations and Denies dyspnea Resp Denies chest congestion, Denies cough and Denies dyspnea GI Denies abdominal pain, Denies constipation, Denies dysphagia, Denies heartburn, Denies diarrhea, Denies nausea, Denies odynophagia and Denies vomiting Denies dysuria, Denies nocturia and Denies urinary frequency Musc Denies back pain and Denies neck pain Skin/Breast Denies rash Neuro Denies dizziness and Denies headache(s) Endo Denies fatigue and Denies palpitations Physical exam (Primary Care) Vital Signs: Last Vital Signs Pulse 70 10/24/23 10:42 BP 120/70 10/24/23 10:42 Pulse Ox 95 10/24/23 10:42 Oxygen Delivery Method Room Air 10/24/23 10:42 BMI result Body Mass Index 27.0 Tobacco/Smoking Status: Tobacco use Status Tobacco use date assessed 10/24/23 10/24/23 10:52 Patient Tobacco Use Status Former Tobacco user 10/24/23 10:52 e-Cigarette/Vaping Use Never Used 10/24/23 10:52 PHQ-9: PHQ-9 Score PHQ-9: Total score 0 10/24/23 11:30 Depression Screening Interpretation: Negative Thrive Assessment: Date of Thrive Assessment Date Thrive assessed 10/24/23 10/24/23 10:52 Currently or been in a relationship where the following occur: no concerns reported Const General: no acute distress and alert HENMT Ears: TM's normal bilaterally and EAC's normal Throat: Yes posterior oropharynx normal and Yes tonsils normal (no TP congestion) Neck Neck: Yes no lymphadenopathy and Yes supple Thyroid: Thyroid normal Resp Auscultation: clear to auscultation bilaterally, no rales and no wheezes Cardio Rate: regular rate Rhythm: regular rhythm Heart sounds: no murmurs GI Palpation (GI): Soft to palpation and nontender Auscultation: normal bowel sounds General: Yes no CVA tenderness Back/Spine/Pelvis Back: no CVA tenderness Thoracic/Lumbar Spine: No lumbar spinal tenderness Skin Rashes: no rashes Extrem General: Yes no clubbing, cyanosis or edema Results Reviewed Results Reviewed: Laboratory Tests 10/17/23 10/17/23 10/17/23 09:37 09:37 09:40 WBC 7.0 Hgb 15.0 Hct 43.4 Plt Count 197 Sodium 141 Potassium 4.0 Creatinine 0.88 Estimated GFR > 60 Fasting Glucose 127 H Hemoglobin A1c % 5.8 Calcium 9.9 AST 19 ALT 20 Triglycerides 134 Cholesterol 146 LDL Cholesterol, Calc 78 HDL Cholesterol 42 25-OH Vitamin D Total 8.2 L TSH 2.01 Ur Specific [place] 1.015 Urine Protein Negative Urine Glucose (UA) Negative Urine Blood Negative Urine Nitrite Negative Microalb/Creat Ratio 18.6 Assessment and Plan Assessment & Plan (1) Benign essential hypertension: Code(s): I10 - Essential (primary) hypertension Plan: Reinforced low sodium diet - goal is systolic BP of at least 140 to 150 mm Continue Metoprolol ER 100 mg QD, Benazepril 40 mg QD and Amlodipine 2.5 mg QD His BP has been a lot better since he was started additionally on Amlodipine 2.5 mg a few months ago Patient is reminded to continue monitoring his blood pressure regularly (2) Diabetes mellitus: Code(s): E11.9 - Type 2 diabetes mellitus without complications Qualifiers: Diabetes mellitus complication status: without complication Diabetes mellitus terminal operations supervisor insulin use: without shelter use Diabetes mellitus type: type 2 Qualified Code(s): E11.9 - Type 2 diabetes mellitus without complications Plan: HgbA1c was at 5.8% on his labs done last week (was at 6.1% a few months ago) - goal is <7.0% Reinforced diabetic diet Continue Metformin 500 mg 2 tablets BID and Repaglidine 0.5 mg QD (3) Pure hypercholesterolemia: Code(s): E78.00 - Pure hypercholesterolemia, unspecified Plan: Results of his labs done last week reviewed and discussed with patient Reinforced low cholesterol diet Continue Simvastatin 40 mg QD Will recheck his labs and fasting lipids in 6 months for follow up (4) Hypercalcemia: Code(s): E83.52 - Hypercalcemia Plan: Will monitor this closely for now - patient is currently asymptomatic Will recheck his Vitamin D level in 6 months time to help determine if his h ypercalcemia is primary or secondary Will also check his intact PTH level for further evaluation then (5) Vitamin D deficiency: Code(s): E55.9 - Vitamin D deficiency, unspecified Plan: Will increase his Vitamin D3 to 2000 units daily Will recheck his Vitamin D level in 6 months for follow up (6) Tachycardia-bradycardia syndrome: Code(s): I49.5 - Sick sinus syndrome Plan: No recurrence of symptoms recently Continue Metoprolol ER 100 mg QD Follow up with cardiology as scheduled (7) Overweight (BMI 25.0-29.9): Code(s): E66.3 - Overweight Plan: Reinforced diet/exercise as tolerated/lose weight Plan Follow up in 6 months Orders: Orders Complete Blood Count Auto Diff 6 Months D64.9 - Anemia, unspecified Lipid Panel 6 Months E78.00 - Pure hypercholesterolemia, unspecified TSH reflex Free T4 6 Months E78.00 - Pure hypercholesterolemia, unspecified Comprehensive [place]. Panel Fast 6 Months E78.00 - Pure hypercholesterolemia, unspecified UA CC w/rflx Micro + Cult 6 Months R30.0 - Dysuria Vitamin D 25-OH Total 6 Months E55.9 - Vitamin D deficiency, unspecified Hemoglobin A1c 6 Months E11.9 - Type 2 diabetes mellitus without complications Medications: Changed From cholecalciferol (vitamin D3) 25 mcg PO DAILY To cholecalciferol (vitamin D3) 50 mcg PO DAILY Refilled amlodipine 2.5 mg PO DAILY 90 tabs 1RF 90 days benazepril 40 mg PO DAILY 90 tabs 1RF 90 days Coding Level of Care Code Est Pt Level 4 (88982) Diagnoses Benign essential hypertension I10 Type 2 diabetes mellitus without complication, without long-term current use of insulin E11.9 Diabetes mellitus complication status: without complication Diabetes mellitus terminal operations supervisor insulin use: without terminal operations supervisor use Diabetes mellitus type: type 2 Pure hypercholesterolemia E78.00 Hypercalcemia E83.52 Vitamin D deficiency E55.9 Tachycardia-bradycardia syndrome I49.5 Overweight (BMI 25.0-29.9) E66.3
[2023-10-24 10:42] VITALS: BP 120/70; PULSE 70; O2SAT 95; BMI 27.0
== END 2023-10-24 11:38 | disposition home or self-care (01) ==
PROVIDERS: PCP Internal Medicine; Visit Provider Internal Medicine
DX: I10 Essential (primary) hypertension (principal); E11.9 Type 2 diabetes mellitus without complications; E78.00 Pure hypercholesterolemia, unspecified; E83.52 Hypercalcemia; E55.9 Vitamin D deficiency, unspecified; I49.5 Sick sinus syndrome; E66.3 Overweight
CPT/HCPCS: 99214

== ENCOUNTER 2023-10-30 12:03 | Outpatient (AMB) | payer MEDICARE, SELFPAY ==
--- NOTE | 2023-10-30 12:32 | A.OFFVIS_ITS ---
Intake Vital Signs 10/30/23 12:33 Height 6 ft Weight 200 lb 2.876 oz BMI 27.1 BP 140/78 H Blood Pressure Location Lt brachial Position Sitting Pulse 64 Intake Visit Reasons: 1 yr f/up w/ st buddy pacer ck Intake Note: 1 year w/ EKG Supervisor [place] Required: No Accompanied by: Self / Same As Patient Allergies No Known Allergies Allergy (Verified 10/30/23 12:33) Medication List - Last Reconciled 10/30/23 by Adriel Marquez MD amlodipine 2.5 mg PO DAILY 90 days aspirin 81 mg PO DAILY benazepril 40 mg PO DAILY 90 days blood pressure monitor (Blood Pressure Kit) As directed cholecalciferol (vitamin D3) 50 mcg PO DAILY cyanocobalamin (vitamin B-12) 1,000 mcg PO DAILY metformin 1,000 mg (2 x 500 mg) PO BID metoprolol succinate ER 100 mg PO DAILY multivitamin with folic acid 400 mcg (Daily-Jose (with folic acid)) 1 tab PO DAILY repaglinide 0.5 mg PO QPM 90 days simvastatin 40 mg PO BEDTIME 90 days HPI HPI Comments History of Present Illness Details Nasim returns for follow-up regarding his pacemaker. He used to be followed up at the [facility] device clinic but then switched to our care. It appears that he had a syncopal episode accompanied by second-degree heart block in 2011. That led to permanent pacemaker implantation. Overall, he is feeling good. No complaints like angina or shortness of breath or in fact anything cardiac sounding. [facility] Medical History Cardiomyopathy Overweight (BMI 25.0-29.9) Tachycardia-bradycardia syndrome Vitamin D deficiency Pure hypercholesterolemia Diabetes mellitus Benign essential hypertension Diabetes type 2, uncontrolled Hypospadias in male Melanocytic nevus Actinic keratoses History of anemia History of colon cancer Wears partial dentures BPH (benign prostatic hyperplasia) Hyperlipidemia, unspecified Type 2 diabetes mellitus with unspecified complications Essential hypertension NSVT (nonsustained ventricular tachycardia) Normally functioning cardiac pacemaker present Surgical History History of partial colectomy (~2013) Hx of tonsillectomy Hx of appendectomy H/O colonoscopy History of cardiac pacemaker (~2011) Family History Father Diabetes Heart disease Hypertension Mother Hypertension CVD (cardiovascular disease) Diabetes Social History Household Members: Significant Other Housing: Condominium Alcohol intake: current Alcohol intake frequency: holidays/special occasions only Patient Tobacco Use Status: Former Tobacco user Quit Date: 12 years ago e-Cigarette/Vaping Use: Never Used Second Hand Smoke Exposure: Yes service: Yes Current occupational status: retired Cognitive needs: No Hearing needs: No Vision needs: Yes (Glasses) Review of Systems Const All systems reviewed & are unremarkable except as noted in HPI and below Reports as per HPI and Reports no additional complaints Eyes Reports as per HPI and Denies no additional complaints ENT Denies no additional complaints and Reports as per HPI Card Reports as per HPI, Reports no additional complaints, Denies acrocyanosis, Denies chest pain, Denies leg edema, Denies lightheadedness, Denies palpitations and Denies dyspnea Resp Reports as per HPI, Denies no additional complaints and Denies dyspnea GI Reports as per HPI and Denies no additional complaints Reports no additional complaints and Reports as per HPI Musc Reports no additional complaints and Reports as per HPI Skin/Breast Reports system reviewed and no additional complaints, except as documented Neuro Reports no additional complaints and Reports as per HPI Psych Reports no additional complaints and Reports as per HPI Endo Reports no additional complaints, Reports as per HPI and Denies palpitations Mandeep/Lymph Reports no additional complaints and Reports as per HPI Aller/Immun Reports no additional complaints and Reports as per HPI Physical Exam Vital Signs: Last Vital Signs Pulse 64 10/30/23 12:33 BP 140/78 H 10/30/23 12:33 BMI result Body Mass Index 27.1 Const General: comfortable and no acute distress Orientation/consciousness: patient oriented x3 HEENT Other: Unremarkable Head: Yes normal to inspection Neck Neck: Yes normal visual inspection Chest Chest palpation & inspection: normal inspection of the chest Resp Auscultation: clear to auscultation bilaterally Cardio Palpation: normal PMI Heart sounds: S1 normal heart sound present, S2 normal heart sound present, no gallops, Murmur heart sound present systolic II/ and at the right sternal border and no rubs GI Palpation (GI): Soft to palpation Back/Spine/Pelvis Other: unremarkable Skin General skin exam: no rashes or lesions noted Neuro General: patient oriented x3 Extrem General: Yes normal to inspection Psych Mental Status: mental status grossly normal Office Procedures Cardiac Device Check Cardiac Device Check Details: Pacemaker interrogated today. Dual-chamber device, programmed DDD mode. Battery status > 10 years. Normal lead parameters. Ventricular pacing > 99%. No significant arrhythmias. Overall, normal device function. [id number] Cardiac Device Check, pacemaker dual lead Procedure code (CPT) selection complete EKG Details: EKG with sinus, 64/min, V paced rhythm. [id number], Complete Assessment & Plan Assessment & Plan (1) Normally functioning cardiac pacemaker present: Code(s): Z95.0 - Presence of cardiac pacemaker Plan: Normally functioning. Interrogated today. (2) NSVT (nonsustained ventricular tachycardia): Code(s): I47.2 - Ventricular tachycardia Plan: In prior remote monitoring, 37 beat run of NSVT. Echocardiogram with preserved LVEF. Myocardial perfusion imaging study 2019 with normal perfusion. Beta-henrik dose was increased in the past. No recent events. (3) Cardiomyopathy: Code(s): I42.9 - Cardiomyopathy, unspecified Plan: Prior echocardiogram with mild cardiomyopathy, possibly from pacing. In the repeat study, normal LVEF. (4) Nonrheumatic aortic (valve) stenosis: Code(s): I35.0 - Nonrheumatic aortic (valve) stenosis Plan: Recent echocardiogram with mild aortic stenosis. Can be followed with another study in 3-5 years. (5) Essential hypertension: Code(s): I10 - Essential (primary) hypertension Plan: Borderline blood pressures. On metoprolol, benazepril, amlodipine. (6) Type 2 diabetes mellitus with unspecified complications: Code(s): E11.8 - Type 2 diabetes mellitus with unspecified complications Plan: On Metformin, Repaglinide. Last HbA1c 5.8%. Coding Level of Care Code Est Pt Level 4 (98376) Diagnoses Normally functioning cardiac pacemaker present Z95.0 NSVT (nonsustained ventricular tachycardia) I47.2 Cardiomyopathy I42.9 Nonrheumatic aortic (valve) stenosis I35.0 Essential hypertension I10 Type 2 diabetes mellitus with unspecified complications E11.8 CPT Codes Cardiac Device Check - Cardiac Device 2: [id number] Cardiac Device Check, pacemaker dual lead ([id number]) EKG - CPT: 14678-Ronvayokjcjvzadng, Complete ([id number])
[2023-10-30 12:33] VITALS: BP 140/78; PULSE 64; BMI 27.1
== END 2023-10-30 12:49 | disposition home or self-care (01) ==
PROVIDERS: Visit Provider Internal Medicine
DX: Z95.0 Presence of cardiac pacemaker (principal); I47.20 Ventricular tachycardia, unspecified; I42.9 Cardiomyopathy, unspecified; I35.0 Nonrheumatic aortic (valve) stenosis; I10 Essential (primary) hypertension; E11.8 Type 2 diabetes mellitus with unspecified complications
CPT/HCPCS: 93010; 93280; 99214

== ENCOUNTER → 2023-10-30 12:03 | Outpatient (BNVA) | payer MEDICARE, SELFPAY | PROVIDERS: Visit Provider Internal Medicine | DX: I47.20 Ventricular tachycardia, unspecified (principal); I42.9 Cardiomyopathy, unspecified; I35.0 Nonrheumatic aortic (valve) stenosis; I10 Essential (primary) hypertension; E11.8 Type 2 diabetes mellitus with unspecified complications; Z45.010 Encounter for checking and testing of cardiac pacemaker pulse generator [battery] | CPT/HCPCS: 93005; 93280; 99212 ==

== ENCOUNTER → 2023-11-02 23:59 | Outpatient (BNV) | payer MEDICARE, SELFPAY ==
--- NOTE | 2023-11-02 15:12 | A.OFFVIS_ITS ---
Intake Intake Visit Reasons: remote device check- [facility] Allergies No Known Allergies Allergy (Verified 10/30/23 12:33) [facility] Medical History Cardiomyopathy Overweight (BMI 25.0-29.9) Tachycardia-bradycardia syndrome Vitamin D deficiency Pure hypercholesterolemia Diabetes mellitus Benign essential hypertension Diabetes type 2, uncontrolled Hypospadias in male Melanocytic nevus Actinic keratoses History of anemia History of colon cancer Wears partial dentures BPH (benign prostatic hyperplasia) Hyperlipidemia, unspecified Type 2 diabetes mellitus with unspecified complications Essential hypertension NSVT (nonsustained ventricular tachycardia) Normally functioning cardiac pacemaker present Surgical History History of partial colectomy (~2013) Hx of tonsillectomy Hx of appendectomy H/O colonoscopy History of cardiac pacemaker (~2011) Family History Father Diabetes Heart disease Hypertension Mother Hypertension CVD (cardiovascular disease) Diabetes Social History Household Members: Significant Other Housing: [facility] Alcohol intake: current Alcohol intake frequency: holidays/special occasions only Patient Tobacco Use Status: Former Tobacco user Quit Date: 12 years ago e-Cigarette/Vaping Use: Never Used Second Hand Smoke Exposure: Yes service: Yes Current occupational status: retired Cognitive needs: No Hearing needs: No Vision needs: Yes (Glasses) Office Procedures Cardiac Device Check Cardiac Device Check Details: Date of service- 11/02/2023 ; Battery life >7 years; normal lead parameters; AP 9.3%; SIZER HAND >99%; no significant arrhythmias. Overall normal device function. [id number] Cardiac Device Interrogation, pacemaker Procedure code (CPT) selection complete Assessment & Plan Assessment & Plan (1) Heart block: Code(s): I45.9 - Conduction disorder, unspecified Plan x Coding Level of Care Code Procedure Only Diagnoses Heart block I45.9 CPT Codes Cardiac Device Check - Cardiac Device 12: [id number] Cardiac Device Interrogation, pacemaker ([id number])
== END ==
PROVIDERS: PCP Internal Medicine; Visit Provider Internal Medicine
DX: I45.9 Conduction disorder, unspecified (principal); Z95.0 Presence of cardiac pacemaker
CPT/HCPCS: 93294

== ENCOUNTER → 2024-02-01 23:59 | Outpatient (BNV) | payer MEDICARE, SELFPAY ==
--- NOTE | 2024-02-04 10:53 | MHC.OFFVIS ---
Intake Visit Reasons: remote device check- [facility] Allergies No Known Allergies Allergy (Verified 10/30/23 12:33) [facility] Medical History Cardiomyopathy Overweight (BMI 25.0-29.9) Tachycardia-bradycardia syndrome Vitamin D deficiency Pure hypercholesterolemia Diabetes mellitus Benign essential hypertension Diabetes type 2, uncontrolled Hypospadias in male Melanocytic nevus Actinic keratoses History of anemia History of colon cancer Wears partial dentures BPH (benign prostatic hyperplasia) Hyperlipidemia, unspecified Type 2 diabetes mellitus with unspecified complications Essential hypertension NSVT (nonsustained ventricular tachycardia) Normally functioning cardiac pacemaker present Surgical History History of partial colectomy (~2013) Hx of tonsillectomy Hx of appendectomy H/O colonoscopy History of cardiac pacemaker (~2011) Family History Father Diabetes Heart disease Hypertension Mother Hypertension CVD (cardiovascular disease) Diabetes Social History Household Members: Significant [facility] Alcohol intake: current Alcohol intake frequency: holidays/special occasions only Patient Tobacco Use Status: Former Tobacco user e-Cigarette/Vaping Use: Never Used Second Hand Smoke Exposure: Yes service: Yes Current occupational status: retired Cognitive needs: No Hearing needs: No Vision needs: Yes (Glasses) Office Procedures Cardiac Device Check Cardiac Device Check Details: Date of service- 02/01/2024 ; Battery life 7.2 years; normal lead parameters; AP 13%; SPEECH LANGUAGE ASSISTANT 99%; no significant arrhythmias. Overall normal device function. [id number] Cardiac Device Interrogation, pacemaker Procedure code (CPT) selection complete Assessment & Plan Assessment & Plan (1) Heart block: Code(s): I45.9 - Conduction disorder, unspecified Category: Medical Plan x Coding Level of Care Code Procedure Only Diagnoses Heart block I45.9 CPT Codes Cardiac Device Check - Cardiac Device 12: [id number] Cardiac Device Interrogation, pacemaker ([id number])
== END ==
PROVIDERS: PCP Internal Medicine; Visit Provider Internal Medicine
DX: I45.9 Conduction disorder, unspecified (principal); Z95.0 Presence of cardiac pacemaker
CPT/HCPCS: 93294

== ENCOUNTER 2024-04-25 11:29 | Outpatient (REF) | payer MEDICARE, SELFPAY ==
[2024-04-25 12:48] LABS: MANUAL DIFF FLAG NO
[2024-04-25 13:20] LABS: Appearance Urine Cloudy; Color Urine Yellow; Glucose Urine UA Negative (Negative); Leukocyte Esterase Urine Moderate (2+) (Negative); Nitrite Urine Negative (Negative); Specific Gravity - Urine 1.015 (1.005-1.025); UMIC TRIGGER UACC YES; Urine Blood Negative (Negative); Urine Ketones Negative (Negative); Urine Protein Negative (Neg-Trace)
[2024-04-25 13:27] LABS: Bacteria Urine 4+ (None Seen); Hyaline Casts Urine 0-2 /LPF (0-2); RBC Urine 0-2 /HPF (0-2); Squamous Epithelial Cell Urine 0-2 /HPF (0-2); UACC Culture Trigger YES; WBC Urine 21-50 /HPF (0-5)
[2024-04-25 13:59] LABS: Basophils Absolute Auto 0.1 X10*3/uL (0.0-0.2); Basophils Percent Auto 0.6 % (0-2); Eosinophils Absolute Auto 0.1 X10*3/uL (0.0-0.4); Eosinophils Percent Auto 1.7 % (0-4); Hematocrit 40.5 % (42.0-52.0); Hemoglobin 13.9 g/dl (14.0-18.0); Imm Gran Abs Auto 0.03 X10*3/uL (0.00-0.03); Imm Gran Pct Auto 0.4 % (0.0-0.4); Lymphocytes Absolute Auto 1.8 X10*3/uL (1.2-4.9); Lymphocytes Percent Auto 23.4 % (20-40); Mean Corpuscular HGB Conc 34.3 g/dl (31.0-36.0); Mean Corpuscular Hemoglobin 30.4 pg (27.0-33.0); Mean Corpuscular Volume 88.6 fL (80.0-98.0); Mean Platelet Volume 10.9 fL (9.4-12.4); Monocytes Absolute Auto 0.8 X10*3/uL (0.1-1.2); Monocytes Percent Auto 9.7 % (2-11); Neutrophils Absolute Auto 4.9 x10*3/uL (2.0-8.3); Neutrophils Percent Auto 64.2 % (45-73); Platelet Count 194 X10*3/uL (160-400); Red Blood Count 4.57 X10*6/uL (4.60-5.80); Red Cell Distribution Width 12.6 % (11.0-16.0); White Blood Count 7.7 X10*3/uL (4.8-10.8)
[2024-04-25 14:16] LABS: Estimated Average Glucose 126 mg/dL; Hemoglobin A1C 148.6961 umol/L
[2024-04-25 14:56] LABS: Alanine Aminotransferase 21 U/L (0-40); Albumin Level 4.4 g/dL (3.5-5.0); Alkaline Phosphatase 69 U/L (39-117); Anion Gap 13 (12-20); Aspartate Amino Transferase 22 U/L (5-37); Bilirubin Total 0.7 mg/dL (0.0-1.0); Blood Urea Nitrogen 11 mg/dL (9-16); Calcium 10.3 mg/dL (8.4-10.2); Carbon Dioxide 22 mmol/L (22-29); Chloride 108 mmol/L (96-108); Cholesterol 113 mg/dL (<200); Estimated Glomerular Filt Rate > 60; Glucose Fasting 111 mg/dL (60-99); HDL Cholesterol 40 mg/dL (>40); LDL Cholesterol Calculated 52 mg/dL (<100); Sodium 139 mmol/L (135-145); TSH reflex Free T4 0.86 uIU/mL (0.32-4.0); Total Protein 7.7 g/dL (6.5-8.0); Triglycerides 107 mg/dL (<150); Vitamin D 25-OH Total 4.9 ng/mL (>30)
[2024-04-25 14:57] LABS: Prostate Specific Antigen 3.62 ng/mL (<0.05-4.0)
== END 2024-04-25 11:30 | disposition home or self-care (01) ==
LOC: HO.LAB 11:29
PROVIDERS: Urology; PCP Internal Medicine; Visit Provider Internal Medicine
DX: D64.9 Anemia, unspecified (principal); E78.00 Pure hypercholesterolemia, unspecified; E11.9 Type 2 diabetes mellitus without complications; N40.1 Benign prostatic hyperplasia with lower urinary tract symptoms; R33.9 Retention of urine, unspecified; Z12.5 Encounter for screening for malignant neoplasm of prostate; I10 Essential (primary) hypertension; R30.0 Dysuria; E83.52 Hypercalcemia; I49.5 Sick sinus syndrome; Z95.0 Presence of cardiac pacemaker; E66.3 Overweight
CPT/HCPCS: 36415; 80053; 80061; 81001; 82306; 83036; 84153; 84443; 85025; 87086; 99212

== ENCOUNTER 2024-04-25 11:29 | Outpatient (AMB) | payer MEDICARE, SELFPAY ==
--- NOTE | 2024-04-25 11:35 | A.OFFPC_ITS ---
Vital Signs 04/25/24 11:36 Height 6 ft Weight 199 lb 2 oz BMI 27.0 BP 122/80 Blood Pressure Location Lt brachial Position Sitting Pulse 98 Pulse Source Pulse Oximeter Pulse Oximetry (%) 97 Oxygen Delivery Method Room Air Intake Visit Reasons: HTN, hyperlipidemia, DM, BPH Bedspread Folder Required: No Accompanied by: Self / Same As Patient Allergies No Known Allergies Allergy (Verified 04/25/24 11:55) Medication List - Last Reconciled 04/25/24 by Silvano Peck MD amlodipine 2.5 mg PO DAILY 90 days aspirin 81 mg PO DAILY benazepril 40 mg PO DAILY 90 days blood pressure monitor (Blood Pressure Kit) As directed cholecalciferol (vitamin D3) 50 mcg PO DAILY cyanocobalamin (vitamin B-12) 1,000 mcg PO DAILY metformin 1,000 mg (2 x 500 mg) PO BID metoprolol succinate ER 100 mg PO DAILY multivitamin with folic acid 400 mcg (Daily-Jose (with folic acid)) 1 tab PO ANNA MARIE LY repaglinide 0.5 mg PO QPM 90 days simvastatin 40 mg PO BEDTIME 90 days Tobacco use date assessed: 04/25/24 Fall risk assessment: No Falls in past year Last assessed Fall Risk: 04/25/24 Dental Screening Dental Screen Date: 04/25/24 Did you have a dental visit in the last 12 months?: No Did you have a dental problem in the last 6 months where you did not have access to dental care?: No Was dental information given to patient?: No HPI HTN, hyperlipidemia, DM, BPH HPI Details Patient comes in today for his follow up visit States that he feels okay He denies any headaches or dizziness Denies any chest pains, no SOB No nausea/vomiting, no abdominal pain No change in bowel habits noted He was not able to get his follow up labs done prior to his visit today due to issues with transportation but states that since he is now here, he can go and get them done after his appointment today [facility] Medical History Cardiomyopathy Overweight (BMI 25.0-29.9) Tachycardia-bradycardia syndrome Vitamin D deficiency Pure hypercholesterolemia Diabetes mellitus Benign essential hypertension Diabetes type 2, uncontrolled Hypospadias in male Melanocytic nevus Actinic keratoses History of anemia History of colon cancer Wears partial dentures BPH (benign prostatic hyperplasia) Hyperlipidemia, unspecified Type 2 diabetes mellitus with unspecified complications Essential hypertension NSVT (nonsustained ventricular tachycardia) Normally functioning cardiac pacemaker present Surgical History History of partial colectomy (~2013) Hx of tonsillectomy Hx of appendectomy H/O colonoscopy History of cardiac pacemaker (~2011) Family History Father Diabetes Heart disease Hypertension Mother Hypertension CVD (cardiovascular disease) Diabetes Social History Household Members: Significant Other Housing: Condominium Alcohol intake: current Alcohol intake frequency: holidays/special occasions only Patient Tobacco Use Status: Former Tobacco user e-Cigarette/Vaping Use: Never Used Second Hand Smoke Exposure: Yes service: Yes Current occupational status: retired Cognitive needs: No Hearing needs: No Vision needs: Yes (Glasses) Questionnaire PHQ-9 Over the last 2 weeks, how often have you been bothered by any of the following problems? 1. Little interest or pleasure in doing things: not at all 2. Feeling down, depressed, or hopeless: not at all 3. Trouble falling or staying asleep, or sleeping too much: not at all 4. Feeling tired or having little energy: not at all 5. Poor appetite or overeating: not at all 6. Feeling bad about yourself - or that you are a failure or have let yourself or your family down: not at all 7. Trouble concentrating on things, such as reading the newspaper or watching television: not at all 8. Moving or speaking so slowly that other people could have noticed. Or the opposite - being so fidgety or restless that you have been moving around a lot more than usual: not at all 9. Thoughts that you would be better off or of hurting yourself in some way: not at all Total score: 0 Depression Screening Interpretation: Negative Depression Screening Done: Yes 66790 - PHQ-9 Billing: Yes Source: Developed by Drs. Tobin White, Sangita Chawla, Vin Nelson and colleagues, with an educational filiberto from [employer]. Thrive Questionnaire Date Thrive assessed: 04/25/24 I am a: Patient What is your living situation today?: I have a steady place to live Within the past 12 months, did the food you bought not last and you didn't have the money to get more?: Never true Within the past 12 months, did you worry whether your food would run out before you got money to buy more?: Never true Do you have trouble paying for medicines?: No Do you have trouble getting transportation to medical appointments?: No Do you have trouble paying your heating and electricity bill?: No Do you have trouble taking care of your child, family member or friend?: No Do you have trouble with day-to-day activities such as bathing, preparing meals, shopping, managing finances, etc.?: No Are you currently unemployed and looking for a job?: No Are you interested in more education?: No Please select the resources that you would like help with: None Currently or been in a relationship where the following occur: No concerns reported THRIVE Score: 0 AUDIT C Alcohol Use Questionnaire (AUDIT-C) 1. How often do you have a drink containing alcohol?: Monthly or less 2. How many drinks containing alcohol do you have on a typical day when you are drinking?: 3 or 4 3. How often do you have six or more drinks on one occasion?: Never Total Score: 2 Score Reviewed/Action Taken: Yes JOHNNY-7 AMB Questionnaire JOHNNY-7 Date JOHNNY - 7 assessed: 04/25/24 Feeling nervous, anxious, or on edge: 0 = Not at all Not being able to stop or control worryin = Not at all Worrying too much about different things: 0 = Not at all Trouble relaxin = Not at all Being so restless that it is hard to sit still: 0 = Not at all Becoming easily annoyed or irritable: 0 = Not at all Feeling afraid as if something awful might happen: 0 = Not at all Total JOHNNY-7 score (0-4 normal; 5-9 mild; 10-14 moderate; 15-21 severe): 0 Source: Developed by Drs. Tobin White, Sangita Chawla, Vin Nelson and colleagues, with an educational filiberto from [employer]. Review of Systems Const Denies chills, Denies fatigue, Denies fever(s) and Denies headache(s) ENT Denies dysphagia, Denies dizziness, Denies otalgia, Denies headache(s), Denies neck pain, Denies odynophagia and Denies sore throat Card Denies chest pain, Denies palpitations and Denies dyspnea Resp Denies cough and Denies dyspnea GI Denies abdominal pain, Denies constipation, Denies dysphagia, Denies heartburn, Denies diarrhea, Denies nausea, Denies odynophagia and Denies vomiting Denies dysuria, Denies nocturia and Denies urinary frequency Musc Denies back pain and Denies neck pain Skin/Breast Denies rash Neuro Denies dizziness and Denies headache(s) Endo Denies fatigue and Denies palpitations Physical exam (Primary Care) Vital Signs: Last Vital Signs Pulse 98 04/25/24 11:36 BP 122/80 04/25/24 11:36 Pulse Ox 97 04/25/24 11:36 Oxygen Delivery Method Room Air 04/25/24 11:36 BMI result Body Mass Index 27.0 Tobacco/Smoking Status: Tobacco use Status Tobacco use date assessed 04/25/24 04/25/24 11:42 Patient Tobacco Use Status Former Tobacco user 04/25/24 11:42 e-Cigarette/Vaping Use Never Used 04/25/24 11:42 PHQ-9: PHQ-9 Score PHQ-9: Total score 0 04/25/24 11:57 Depression Screening Interpretation: Negative Thrive Assessment: Date of Thrive Assessment Date Thrive assessed 04/25/24 04/25/24 11:42 Currently or been in a relationship where the following occur: No concerns reported Const General: no acute distress and alert HENMT Ears: TM's normal bilaterally and EAC's normal Throat: Yes posterior oropharynx normal and Yes tonsils normal (no TP congestion) Neck Neck: Yes no lymphadenopathy and Yes supple Thyroid: Thyroid normal Resp Auscultation: clear to auscultation bilaterally, no rales and no wheezes Cardio Rate: regular rate Rhythm: regular rhythm Heart sounds: no murmurs GI Palpation (GI): Soft to palpation and nontender Auscultation: normal bowel sounds General: Yes no CVA tenderness Back/Spine/Pelvis Back: no CVA tenderness Thoracic/Lumbar Spine: No lumbar spinal tenderness Skin Rashes: no rashes Extrem General: Yes no clubbing, cyanosis or edema Assessment and Plan Assessment & Plan (1) Benign essential hypertension: Code(s): I10 - Essential (primary) hypertension Plan: Reinforced low sodium diet - goal is systolic BP of at least 140 to 150 mm Continue Metoprolol ER 100 mg QD, Benazepril 40 mg QD and Amlodipine 2.5 mg QD - his BP appears to be a lot better since he was started additionally on Amlodipine a few months ago Patient is reminded to continue monitoring his blood pressure regularly (2) Diabetes mellitus: Code(s): E11.9 - Type 2 diabetes mellitus without complications Qualifiers: Diabetes mellitus type: type 2 Diabetes mellitus assistant terminal manager insulin use: without custodial use Diabetes mellitus complication status: without complication Qualified Code(s): E11.9 - Type 2 diabetes mellitus without complications Plan: His HgbA1c was at 5.8% when last checked in September 2023 - goal is <6.5% Reinforced diabetic diet Continue Metformin 500 mg 2 tablets BID and Repaglinide 0.5 mg Q PM Patient states that he has never seen podiatry in the past - will refer him to podiatry for annual foot exam (3) Pure hypercholesterolemia: Code(s): E78.00 - Pure hypercholesterolemia, unspecified Plan: He was not able to get his labs done yet but states that he will go and get them done right after his appointment today Reinforced low cholesterol diet Continue Simvastatin 40 mg QD Will recheck his labs and fasting lipids in 6 months for follow up (4) Hypercalcemia: Code(s): E83.52 - Hypercalcemia Plan: Patient is currently asymptomatic We will recheck his Vitamin D level to see if his hypercalcemia is primary or secondary Will also check his intact PTH level for further evaluation (5) Vitamin D deficiency: Code(s): E55.9 - Vitamin D deficiency, unspecified Plan: Continue Vitamin D3 1000 units daily Will recheck his Vitamin D level for follow up (6) Tachycardia-bradycardia syndrome: Code(s): I49.5 - Sick sinus syndrome Plan: No recurrence of symptoms recently Continue Metoprolol ER 100 mg QD Follow up with cardiology as scheduled (7) Presence of cardiac pacemaker: Code(s): Z95.0 - Presence of cardiac pacemaker Plan: He had a syncopal episode accompanied by second-degree heart block back in 2011, that led to permanent pacemaker implantation Follow up with cardiology as scheduled for continuing pacemaker monitoring (8) Overweight (BMI 25.0-29.9): Code(s): E66.3 - Overweight Plan: Reinforced diet/exercise as tolerated/lose weight Plan Follow up in 6 months Orders: Orders Complete Blood Count Auto Diff 6 Months D64.9 - Anemia, unspecified Microalbumin, Random (w Creat) 6 Months E11.9 - Type 2 diabetes mellitus without complications Vitamin D 25-OH Total 6 Months E55.9 - Vitamin D deficiency, unspecified Hemoglobin A1c 6 Months E11.9 - Type 2 diabetes mellitus without complications Lipid Panel 6 Months E78.00 - Pure hypercholesterolemia, unspecified Comprehensive [place]. Panel Fast 6 Months E78.00 - Pure hypercholesterolemia, unspecified UA CC w/rflx Micro + Cult 6 Months R30.0 - Dysuria Vitamin B12 and Folate 6 Months E53.8 - Deficiency of other specified B group vitamins Referrals Podiatry Referral E11.9 - Type 2 diabetes mellitus without complications Coding Level of Care Code Est Pt Level 4 (19592) Complex EM visit Add On G2211 Diagnoses Benign essential hypertension I10 Type 2 diabetes mellitus without complication, without long-term current use of insulin E11.9 Diabetes mellitus type: type 2 Diabetes mellitus assistant terminal manager insulin use: without custodial use Diabetes mellitus complication status: without complication Pure hypercholesterolemia E78.00 Hypercalcemia E83.52 Vitamin D deficiency E55.9 Tachycardia-bradycardia syndrome I49.5 Presence of cardiac pacemaker Z95.0 Overweight (BMI 25.0-29.9) E66.3
[2024-04-25 11:36] VITALS: BP 122/80; PULSE 98; O2SAT 97; BMI 27.0
== END 2024-04-25 12:05 | disposition home or self-care (01) ==
PROVIDERS: PCP Internal Medicine; Visit Provider Internal Medicine
DX: I10 Essential (primary) hypertension (principal); E11.9 Type 2 diabetes mellitus without complications; I49.5 Sick sinus syndrome; E78.00 Pure hypercholesterolemia, unspecified; E83.52 Hypercalcemia; E55.9 Vitamin D deficiency, unspecified; Z95.0 Presence of cardiac pacemaker; E66.3 Overweight

== ENCOUNTER → 2024-05-02 23:59 | Outpatient (BNV) | payer MEDICARE, SELFPAY ==
--- NOTE | 2024-05-08 10:14 | A.OFFVIS_ITS ---
Intake Visit Reasons: Remote device check- [facility] Allergies No Known Allergies Allergy (Verified 04/25/24 11:55) [facility] Medical History Cardiomyopathy Overweight (BMI 25.0-29.9) Tachycardia-bradycardia syndrome Vitamin D deficiency Pure hypercholesterolemia Diabetes mellitus Benign essential hypertension Diabetes type 2, uncontrolled Hypospadias in male Melanocytic nevus Actinic keratoses History of anemia History of colon cancer Wears partial dentures BPH (benign prostatic hyperplasia) Hyperlipidemia, unspecified Type 2 diabetes mellitus with unspecified complications Essential hypertension NSVT (nonsustained ventricular tachycardia) Normally functioning cardiac pacemaker present Surgical History History of partial colectomy (~2013) Hx of tonsillectomy Hx of appendectomy H/O colonoscopy History of cardiac pacemaker (~2011) Family History Father Diabetes Heart disease Hypertension Mother Hypertension CVD (cardiovascular disease) Diabetes Social History Household Members: Significant Other Housing: Condominium Alcohol intake: current Alcohol intake frequency: holidays/special occasions only Patient Tobacco Use Status: Former Tobacco user e-Cigarette/Vaping Use: Never Used Second Hand Smoke Exposure: Yes service: Yes Current occupational status: retired Cognitive needs: No Hearing needs: No Vision needs: Yes (Glasses) Office Procedures Cardiac Device Check Cardiac Device Check Details: Date of service- 05/02/2024 ; Battery life >6 years; normal lead parameters; AP 20%; 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 Overall normal device function. [id number] Cardiac Device Interrogation, pacemaker Procedure code (CPT) selection complete Assessment & Plan Assessment & Plan (1) Presence of cardiac pacemaker: Code(s): Z95.0 - Presence of cardiac pacemaker Category: Medical (2) Heart block: Code(s): I45.9 - Conduction disorder, unspecified Category: Medical Plan x Coding Level of Care Code Procedure Only Diagnoses Presence of cardiac pacemaker Z95.0 Heart block I45.9 CPT Codes Cardiac Device Check - Cardiac Device 12: [id number] Cardiac Device Interrogation, pacemaker ([id number])
== END ==
PROVIDERS: PCP Internal Medicine; Visit Provider Internal Medicine
DX: I45.9 Conduction disorder, unspecified (principal); Z95.0 Presence of cardiac pacemaker
CPT/HCPCS: 93294

== ENCOUNTER → 2024-08-01 23:59 | Outpatient (BNV) | payer MEDICARE, SELFPAY ==
--- NOTE | 2024-08-11 14:43 | A.OFFVIS_ITS ---
Intake Visit Reasons: Remote device check- [facility] Allergies No Known Allergies Allergy (Verified 04/25/24 11:55) [facility] Medical History Cardiomyopathy Overweight (BMI 25.0-29.9) Tachycardia-bradycardia syndrome Vitamin D deficiency Pure hypercholesterolemia Diabetes mellitus Benign essential hypertension Diabetes type 2, uncontrolled Hypospadias in male Melanocytic nevus Actinic keratoses History of anemia History of colon cancer Wears partial dentures BPH (benign prostatic hyperplasia) Hyperlipidemia, unspecified Type 2 diabetes mellitus with unspecified complications Essential hypertension NSVT (nonsustained ventricular tachycardia) Normally functioning cardiac pacemaker present Surgical History History of partial colectomy (~2013) Hx of tonsillectomy Hx of appendectomy H/O colonoscopy History of cardiac pacemaker (~2011) Family History Father Diabetes Heart disease Hypertension Mother Hypertension CVD (cardiovascular disease) Diabetes Social History Household Members: Significant Other Housing: Condominium Alcohol intake: current Alcohol intake frequency: holidays/special occasions only Patient Tobacco Use Status: Former Tobacco user e-Cigarette/Vaping Use: Never Used Second Hand Smoke Exposure: Yes service: Yes Current occupational status: retired Cognitive needs: No Hearing needs: No Vision needs: Yes (Glasses) Office Procedures Cardiac Device Check Cardiac Device Check Details: Date of service- 08/01/2024 ; Battery life >6 years; normal lead parameters; AP 25%; 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 Overall normal device function. [id number] Cardiac Device Interrogation, pacemaker Procedure code (CPT) selection complete Assessment & Plan Assessment & Plan (1) Presence of cardiac pacemaker: Code(s): Z95.0 - Presence of cardiac pacemaker Category: Medical (2) Cardiomyopathy: Code(s): I42.9 - Cardiomyopathy, unspecified Category: Medical (3) Heart block: Code(s): I45.9 - Conduction disorder, unspecified Category: Medical Plan x Coding Level of Care Code Procedure Only Diagnoses Presence of cardiac pacemaker Z95.0 Cardiomyopathy I42.9 Heart block I45.9 CPT Codes Cardiac Device Check - Cardiac Device 12: [id number] Cardiac Device Interrogation, pacemaker ([id number])
== END ==
PROVIDERS: PCP Internal Medicine; Visit Provider Internal Medicine
DX: I42.9 Cardiomyopathy, unspecified (principal); I45.9 Conduction disorder, unspecified; Z95.0 Presence of cardiac pacemaker
CPT/HCPCS: 93294

== ENCOUNTER → 2024-10-31 23:59 | Outpatient (BNV) | payer MEDICARE, SELFPAY ==
--- NOTE | 2024-11-03 13:40 | MHC.OFFVIS ---
Intake Visit Reasons: Remote Device check- [facility] Allergies No Known Allergies Allergy (Verified 04/25/24 11:55) [facility] Medical History Cardiomyopathy Overweight (BMI 25.0-29.9) Tachycardia-bradycardia syndrome Vitamin D deficiency Pure hypercholesterolemia Diabetes mellitus Benign essential hypertension Diabetes type 2, uncontrolled Hypospadias in male Melanocytic nevus Actinic keratoses History of anemia History of colon cancer Wears partial dentures BPH (benign prostatic hyperplasia) Hyperlipidemia, unspecified Type 2 diabetes mellitus with unspecified complications Essential hypertension NSVT (nonsustained ventricular tachycardia) Normally functioning cardiac pacemaker present Surgical History History of partial colectomy (~2013) Hx of tonsillectomy Hx of appendectomy H/O colonoscopy History of cardiac pacemaker (~2011) Family History Father Diabetes Heart disease Hypertension Mother Hypertension CVD (cardiovascular disease) Diabetes Social History Household Members: Significant Other Housing: Condominium Alcohol intake: current Alcohol intake frequency: holidays/special occasions only Patient Tobacco Use Status: Former Tobacco user e-Cigarette/Vaping Use: Never Used Second Hand Smoke Exposure: Yes service: Yes Current occupational status: retired Cognitive needs: No Hearing needs: No Vision needs: Yes (Glasses) Office Procedures Cardiac Device Check Cardiac Device Check Details: Date of service- 10/31/2024 ; Battery life > 6 years; normal lead parameters; AP 29%; 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 Overall normal device function. [id number] Cardiac Device Interrogation, pacemaker Procedure code (CPT) selection complete Assessment & Plan Assessment & Plan (1) Normally functioning cardiac pacemaker present: Code(s): Z95.0 - Presence of cardiac pacemaker Category: Medical (2) NSVT (nonsustained ventricular tachycardia): Code(s): I47.2 - Ventricular tachycardia Category: Medical (3) Heart block: Code(s): I45.9 - Conduction disorder, unspecified Category: Medical (4) Cardiomyopathy: Code(s): I42.9 - Cardiomyopathy, unspecified Category: Medical Plan x Coding Level of Care Code Procedure Only Diagnoses Normally functioning cardiac pacemaker present Z95.0 NSVT (nonsustained ventricular tachycardia) I47.2 Heart block I45.9 Cardiomyopathy I42.9 CPT Codes Cardiac Device Check - Cardiac Device 12: [id number] Cardiac Device Interrogation, pacemaker ([id number])
== END ==
PROVIDERS: PCP Internal Medicine; Visit Provider Internal Medicine
DX: I47.20 Ventricular tachycardia, unspecified (principal); Z95.0 Presence of cardiac pacemaker; I45.9 Conduction disorder, unspecified; I42.9 Cardiomyopathy, unspecified
CPT/HCPCS: 93294

== ENCOUNTER 2024-11-04 12:28 | Outpatient (AMB) | payer MEDICARE, SELFPAY ==
[2024-11-04 12:39] VITALS: BP 118/62; PULSE 70; BMI 26.3
--- NOTE | 2024-11-04 12:39 | MHC.OFFVIS ---
Vital Signs 11/04/24 12:39 Height 6 ft Weight 194 lb 0.108 oz BMI 26.3 BP 118/62 Blood Pressure Location Lt brachial Position Sitting Pulse 70 Pulse Source Monitor Intake Visit Reasons: 1 yr w/ st buddy ck Allergies No Known Allergies Allergy (Verified 04/25/24 11:55) Medication List - Last Reconciled 11/04/24 by Adriel Marquez MD amlodipine 2.5 mg PO DAILY 90 days aspirin 81 mg PO DAILY benazepril 40 mg PO DAILY 90 days blood pressure monitor (Blood Pressure Kit) As directed cholecalciferol (vitamin D3) 50 mcg PO DAILY cyanocobalamin (vitamin B-12) 1,000 mcg PO DAILY metformin 1,000 mg (2 x 500 mg) PO BID metoprolol succinate ER 100 mg PO DAILY multivitamin with folic acid 400 mcg (Daily-Jose (with folic acid)) 1 tab PO DAILY repaglinide 0.5 mg PO QPM 90 days simvastatin 40 mg PO BEDTIME 90 days HPI Comments Details: Nasim returns for follow-up regarding his pacemaker. He used to be followed up at the [facility] device clinic but then switched to our care. It appears that he had a syncopal episode accompanied by second-degree heart block in 2011. That led to permanent pacemaker implantation. Since last seen, no new concerns. He feels good. [facility] Medical History Cardiomyopathy Overweight (BMI 25.0-29.9) Tachycardia-bradycardia syndrome Vitamin D deficiency Pure hypercholesterolemia Diabetes mellitus Benign essential hypertension Diabetes type 2, uncontrolled Hypospadias in male Melanocytic nevus Actinic keratoses History of anemia History of colon cancer Wears partial dentures BPH (benign prostatic hyperplasia) Hyperlipidemia, unspecified Type 2 diabetes mellitus with unspecified complications Essential hypertension NSVT (nonsustained ventricular tachycardia) Normally functioning cardiac pacemaker present Surgical History History of partial colectomy (~2013) Hx of tonsillectomy Hx of appendectomy H/O colonoscopy History of cardiac pacemaker (~2011) Family History Father Diabetes Heart disease Hypertension Mother Hypertension CVD (cardiovascular disease) Diabetes Social History Household Members: Significant Other Housing: Condominium Alcohol intake: current Alcohol intake frequency: holidays/special occasions only Patient Tobacco Use Status: Former Tobacco user e-Cigarette/Vaping Use: Never Used Second Hand Smoke Exposure: Yes service: Yes Current occupational status: retired Cognitive needs: No Hearing needs: No Vision needs: Yes (Glasses) Review of Systems Const Denies weakness ENT Denies dizziness Card Denies chest pain, Denies chest pain with activity, Denies syncope, Denies rapid heart rate, Denies pedal edema, Denies edema, Denies leg edema, Denies lightheadedness, Denies palpitations, Denies dyspnea, Denies dyspnea on exertion and Denies orthopnea Resp Denies cough, Denies dyspnea and Denies dyspnea on exertion GI Denies hematochezia and Denies change in stool character Musc Denies abnormal gait, Denies muscle cramps, Denies muscle weakness, Denies numbness, Denies radiating pain into limb and Denies tingling Neuro Denies abnormal gait, Denies dizziness, Denies syncope, Denies numbness, Denies tingling and Denies weakness Endo Denies palpitations Physical Exam Vital Signs: Last Vital Signs Pulse 70 11/04/24 12:39 BP 118/62 11/04/24 12:39 BMI result Body Mass Index 26.3 Const General: comfortable and no acute distress Orientation/consciousness: patient oriented x3 HEENT Other: Unremarkable Head: Yes normal to inspection Neck Neck: Yes normal visual inspection Chest Chest palpation & inspection: normal inspection of the chest Resp Auscultation: clear to auscultation bilaterally Cardio Palpation: normal PMI Heart sounds: S1 normal heart sound present, S2 normal heart sound present, no gallops, Murmur heart sound present systolic I/ and at the right sternal border and no rubs GI Palpation (GI): Soft to palpation Back/Spine/Pelvis Other: unremarkable Skin General skin exam: no rashes or lesions noted Neuro General: patient oriented x3 Extrem General: Yes normal to inspection Psych Mental Status: mental status grossly normal Office Procedures Cardiac Device Check Cardiac Device Check Details: Pacemaker interrogated today. Dual-chamber device, programmed DDD. Battery status more than 6 years. Normal lead parameters. AP 20%; PHYSICIAN/INTERNIST>99%. No alerts. Overall, normal device function. [id number] Cardiac Device Check, pacemaker dual lead Procedure code (CPT) selection complete EKG Details: EKG with atrial sensed, ventricular paced rhythm at 70/Min. [id number], Complete Assessment & Plan Assessment & Plan (1) Normally functioning cardiac pacemaker present: Code(s): Z95.0 - Presence of cardiac pacemaker Category: Medical Plan: Normally functioning. Interrogated today. (2) NSVT (nonsustained ventricular tachycardia): Code(s): I47.2 - Ventricular tachycardia Category: Medical Plan: In prior remote monitoring, 37 beat run of NSVT. Echocardiogram with preserved LVEF. Myocardial perfusion imaging study 2019 with normal perfusion. Beta-henrik dose was increased in the past. No recent events. (3) Cardiomyopathy: Code(s): I42.9 - Cardiomyopathy, unspecified Category: Medical Plan: Prior echocardiogram with mild cardiomyopathy, possibly from pacing. In the repeat study, normal LVEF. (4) Nonrheumatic aortic (valve) stenosis: Code(s): I35.0 - Nonrheumatic aortic (valve) stenosis Category: Medical Plan: Recent echocardiogram with mild aortic stenosis. Follow-up echocardiogram in next 2-3 years. (5) Essential hypertension: Code(s): I10 - Essential (primary) hypertension Category: Medical Plan: Stable. No changes. (6) Type 2 diabetes mellitus with unspecified complications: Code(s): E11.8 - Type 2 diabetes mellitus with unspecified complications Category: Medical Plan: On Metformin, Repaglinide. Last HbA1c 6%. Coding Level of Care Code Est Pt Level 4 (24798) Complex EM visit Add On G2211 Diagnoses Normally functioning cardiac pacemaker present Z95.0 NSVT (nonsustained ventricular tachycardia) I47.2 Cardiomyopathy I42.9 Nonrheumatic aortic (valve) stenosis I35.0 Essential hypertension I10 Type 2 diabetes mellitus with unspecified complications E11.8 CPT Codes Cardiac Device Check - Cardiac Device 2: [id number] Cardiac Device Check, pacemaker dual lead ([id number]) EKG - CPT: 02719-Lpnoyotnvlgtuhetn, Complete ([id number])
== END 2024-11-04 12:53 | disposition home or self-care (01) ==
LOC: HO.HCS 12:29
PROVIDERS: PCP Internal Medicine; Visit Provider Internal Medicine
DX: I47.20 Ventricular tachycardia, unspecified (principal); Z95.0 Presence of cardiac pacemaker; I42.9 Cardiomyopathy, unspecified; I35.0 Nonrheumatic aortic (valve) stenosis; I10 Essential (primary) hypertension; E11.8 Type 2 diabetes mellitus with unspecified complications
CPT/HCPCS: 93010; 93280; 99214; G2211

== ENCOUNTER → 2024-11-04 12:28 | Outpatient (BNVA) | payer MEDICARE, SELFPAY | PROVIDERS: PCP Internal Medicine; Visit Provider Internal Medicine | DX: I47.20 Ventricular tachycardia, unspecified (principal); I42.9 Cardiomyopathy, unspecified; I35.0 Nonrheumatic aortic (valve) stenosis; I10 Essential (primary) hypertension; E11.8 Type 2 diabetes mellitus with unspecified complications; Z95.0 Presence of cardiac pacemaker | CPT/HCPCS: 93005; 93280; 99212 ==

== ENCOUNTER 2024-11-27 09:31 | Outpatient (AMB) | payer MEDICARE, SELFPAY ==
[2024-11-27 09:36] VITALS: BP 134/80; PULSE 66; RESP 18; TEMP 36.9; O2SAT 97; BMI 26.7
--- NOTE | 2024-11-27 09:36 | A.OFFPC_ITS ---
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 He will go this week. A1c done in office 6.3%. he denies sob, chest pain, heart palpitation denies abdominal pain or change in bowel habits denies any urinary symptoms Reports that he [facility] continues current treatments [facility] Medical History Cardiomyopathy Overweight (BMI 25.0-29.9) Tachycardia-bradycardia syndrome Vitamin D deficiency Pure hypercholesterolemia Diabetes mellitus Benign essential hypertension Diabetes type 2, uncontrolled Hypospadias in male Melanocytic nevus Actinic keratoses History of anemia History of colon cancer Wears partial dentures BPH (benign prostatic hyperplasia) Hyperlipidemia, unspecified Type 2 diabetes mellitus with unspecified complications Essential hypertension NSVT (nonsustained ventricular tachycardia) Normally functioning cardiac pacemaker present Surgical History History of partial colectomy (~2013) Hx of tonsillectomy Hx of appendectomy H/O colonoscopy History of cardiac pacemaker (~2011) Family History Father Diabetes Heart disease Hypertension Mother Hypertension CVD (cardiovascular disease) Diabetes Social History Household Members: Significant Other Housing: Condominium Alcohol intake: current Alcohol intake frequency: holidays/special occasions on ly Patient Tobacco Use Status: Former Tobacco user e-Cigarette/Vaping Use: Never Used Second Hand Smoke Exposure: Yes service: Yes Current occupational status: retired Cognitive needs: No Hearing needs: No Vision needs: Yes (Glasses) Questionnaire PHQ-9 Over the last 2 weeks, how often have you been bothered by any of the following problems? 1. Little interest or pleasure in doing things: not at all 2. Feeling down, depressed, or hopeless: not at all 3. Trouble falling or staying asleep, or sleeping too much: not at all 4. Feeling tired or having little energy: not at all 5. Poor appetite or overeating: not at all 6. Feeling bad about yourself - or that you are a failure or have let yourself or your family down: not at all 7. Trouble concentrating on things, such as reading the newspaper or watching television: not at all 8. Moving or speaking so slowly that other people could have noticed. Or the opposite - being so fidgety or restless that you have been moving around a lot more than usual: not at all 9. Thoughts that you would be better off or of hurting yourself in some way: not at all Total score: 0 Depression Screening Interpretation: Negative Depression Screening Done: Yes 36221 - PHQ-9 Billing: Yes Source: Developed by Drs. Tobin White, Sangita Chawla, Vin Nelson and colleagues, with an educational filiberto from [employer]. Thrive Questionnaire Date Thrive assessed: 11/27/24 I am a: Patient What is your living situation today?: I have a steady place to live Within the past 12 months, did the food you bought not last and you didn't have the money to get more?: Never true Within the past 12 months, did you worry whether your food would run out before you got money to buy more?: Never true Do you have trouble paying for medicines?: No Do you have trouble getting transportation to medical appointments?: No Do you have trouble paying your heating and electricity bill?: No Do you have trouble taking care of your child, family member or friend?: No Do you have trouble with day-to-day activities such as bathing, preparing meals, shopping, managing finances, etc.?: No Are you currently unemployed and looking for a job?: No Are you interested in more education?: No Please select the resources that you would like help with: None Currently or been in a relationship where the following occur: I choose not to answer THRIVE Score: 0 AUDIT C Alcohol Use Questionnaire (AUDIT-C) 1. How often do you have a drink containing alcohol?: 2-4 times a month 2. How many drinks containing alcohol do you have on a typical day when you are drinking?: 3 or 4 Total Score: 3 Score Reviewed/Action Taken: No JOHNNY-7 AMB Questionnaire JOHNNY-7 Date JOHNNY - 7 assessed: 11/27/24 Feeling nervous, anxious, or on edge: 0 = Not at all Not being able to stop or control worryin = Not at all Worrying too much about different things: 0 = Not at all Trouble relaxin = Not at all Being so restless that it is hard to sit still: 0 = Not at all Becoming easily annoyed or irritable: 0 = Not at all Feeling afraid as if something awful might happen: 0 = Not at all Total JOHNNY-7 score (0-4 normal; 5-9 mild; 10-14 moderate; 15-21 severe): 0 Source: Developed by Drs. Tobin White, Sangita Chawla, Vin Nelson and colleagues, with an educational filiberto from [employer]. JOHNNY-7 Assessment Billing JOHNNY-7 Assessment Tool: JOHNNY-7 Assessment 19445 Review of Systems Const Denies headache(s) Eyes Denies loss of vision ENT Denies vertigo, Denies dizziness, Denies headache(s) and Denies sore throat Card Denies chest pain, Denies leg edema and Denies lightheadedness Resp Denies cough, Denies hemoptysis and Denies wheezing GI Denies abdominal pain, Denies melena, Denies constipation, Denies diarrhea and Denies vomiting Denies dysuria, Denies urinary frequency and Denies urinary urgency Musc Denies arthralgias, Denies joint swelling, Denies numbness and Denies tingling Neuro Denies Abnormal speech present, Denies behavioral changes, Denies vertigo, Denies dizziness, Denies headache(s), Denies loss of vision, Denies memory loss, Denies numbness and Denies tingling Psych Denies anxiety, Denies behavioral changes, Denies depression, Denies memory loss and Denies panic attacks Mandeep/Lymph Denies easy bleeding and Denies easy bruising Aller/Immun Denies wheezing Physical exam (Primary Care) Vital Signs: Last Vital Signs Temp 98.5 F 11/27/24 09:36 Pulse 66 11/27/24 09:36 Resp 18 11/27/24 09:36 BP 134/80 11/27/24 09:36 Pulse Ox 97 11/27/24 09:36 Oxygen Delivery Method Room Air 11/27/24 09:36 BMI result Body Mass Index 26.7 Tobacco/Smoking Status: Tobacco use Status Tobacco use date assessed 11/27/24 11/27/24 09:44 Patient Tobacco Use Status Former Tobacco user 11/27/24 09:44 e-Cigarette/Vaping Use Never Used 11/27/24 09:44 PHQ-9: PHQ-9 Score PHQ-9: Total score 0 11/27/24 09:45 Depression Screening Interpretation: Negative Thrive Assessment: Date of Thrive Assessment Date Thrive assessed 11/27/24 11/27/24 09:44 Currently or been in a relationship where the following occur: I choose not to answer Const General: healthy appearing, no acute distress, alert and awake Nutritional Appearance: well nourished Orientation/consciousness: oriented to person, oriented to place and oriented to time HENMT Ears: external ears normal General nose exam: Normal external nose present Eyes Conjunctivae: conjunctivae normal Sclerae: sclerae normal Pupils: Equal, round and reactive pupils present Neck Neck: Yes no lymphadenopathy and Yes no JVD Thyroid: Thyroid normal Carotids: no bruits Resp Effort & Inspection: normal respiratory effort and not tachypneic Auscultation: no crackles, no rales, no rhonchi and no wheezes Cardio Rate: regular rate Rhythm: regular rhythm Heart sounds: no murmurs and normal S1 and S2 GI Palpation (GI): Soft to palpation, nontender, no hepatomegaly and no splenomegaly Auscultation: normal bowel sounds Skin General skin exam: no rashes or lesions noted and dry skin Neuro General: oriented to person, oriented to place and oriented to time Cranial nerves: Yes Equal, round and reactive pupils present Speech: No Abnormal speech present Gait exam (Neuro): Normal gait present Motor exam (neuro): no tremor noted Extrem Right upper extremity: full ROM Left upper extremity: full ROM Right lower extremity: full ROM; no edema Left lower extremity: full ROM; no edema Psych Mental Status: mental status grossly normal Speech and movement: Normal speech and movement present Affect: normal affect Attitude: cooperative Thought process: Normal thought process present Results AMB Hemoglobin A1c AMB Hemoglobin A1c 6.3 % Last Edit by Aliza Carvalho CMA on 11/27/24 10:15 Coding Additional Codes JOHNNY-7 Assessment Billing - JOHNNY-7 Assessment Tool: JOHNNY-7 Assessment 97324 ([id number]) PHQ-9 - 43143 - PHQ-9 Billing: Yes ([id number]) Assessment & Plan Assessment & Plan Orders: Orders AMB Hemoglobin A1c Today E11.8 - Type 2 diabetes mellitus with unspecified complications Medications: Refilled metoprolol succinate ER 100 mg PO DAILY 90 tabs 3RF
--- OUTSIDE RECORDS SUMMARY | 2024-11-27 10:14 | XMS_ITS | Continuity of Care Document ---
Author Name [facility] Organization [facility] Care Team Providers Care Technician Automated Equipment Name Role Phone [facility] Unavailable Unavailable Problems Combined list of problems from Department of Defense and Veterans Affairs facilities. It does not include entries that were removed or entered in error. 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 Medication Details Route Status Patient Instructions Prescription Expires Prescription Number Last Dispense Date Ordering Provider Order Date Order Qty Source ASPIRIN 81MG TAB,EC TAKE ONE TABLET BY MOUTH EVERY DAY ORAL ACTIVE [facility] ATENOLOL 50MG TAB TAKE ONE TABLET BY MOUTH EVERY DAY ORAL ACTIVE IVANA MIGUEL 2012 [facility] LISINOPRIL 20MG TAB TAKE ONE TABLET BY MOUTH EVERY DAY ORAL ACTIVE IVANA MIGUEL 2012 [facility] METFORMIN HCL 500MG TAB TAKE ONE TABLET BY MOUTH TWICE DAILY ORAL ACTIVE MYRIAM,HOW BRANDO D 2013 [facility] NIACIN 500MG CAP,SA TAKE 2 CAPSULES BY MOUTH AT BEDTIME ORAL ACTIVE MYRIAM,HOW BRANDO D 2012 [facility] SIMVASTATIN 80MG TAB TAKE ONE TABLET BY MOUTH AT BEDTIME ORAL ACTIVE MYRIAM,HOW BRANDO D 2012 [facility] Immunizations Combined list of available immunizations from the Department of Defense and Veterans Affairs facilities. Immunization Series Date Given Administered By Site Reaction Lot Number CVX Code Drug Elevating Grader Operator Status Comments Source COVID-19 ([employer]), MRNA, LNP-S, PF, 30 MCG/0.3 ML DOSE 2 2020 208 complet ed PFR; [id number]; 1 [facility] COVID-19 ([employer]), MRNA, LNP-S, PF, 30 MCG/0.3 ML DOSE 1 2020 208 complet ed PFR; [id number]; 1 [facility] FLU,3 YRS (HISTORICAL) 2012 88 complet ed [facility] PNEUMOCOCCAL, UNSPECIFIED FORMULATION 2012 109 complet ed [facility] FLU,3 YRS (HISTORICAL) 2011 88 complet ed Site: Right Deltoid [facility] FLU,3 YRS (HISTORICAL) 2010 88 complet ed Site: Right Deltoid [facility] FLU,3 YRS (HISTORICAL) 2009 88 complet ed Site: Right Deltoid [facility] NOVEL INFLUENZA-H1N 1-09, ALL FORMULATIONS 2009 128 complet ed [employer] [facility] FLU,3 YRS (HISTORICAL) 2008 88 complet ed Site: Left Deltoid [facility] ZOSTER LIVE 2008 121 complet ed [facility] TDAP 2008 115 complet ed Left Deltoid [facility] FLU,3 YRS (HISTORICAL) 2007 88 complet ed Site: Right Deltoid [facility] FLU,3 YRS (HISTORICAL) 2006 88 complet ed Site: Right Deltoid [facility] FLU,3 YRS (HISTORICAL) 2005 88 complet ed [facility] FLU,3 YRS (HISTORICAL) 2004 RAD[facility] KUMAR 88 complet ed [facility] FLU,3 YRS (HISTORICAL) 2004 RADU KUMAR 88 complet ed [facility] FLU,3 YRS (HISTORICAL) 2002 RADU KUMAR 88 complet ed [facility] PNEUMOCOCCAL, UNSPECIFIED FORMULATION 2001 109 complet ed Site: Right Deltoid [facility] Social History Combined list of available smoking, tobacco, and other social history from Department of Defense and Veterans Affairs facilities. Social History Type Response Date Comment Source Tobacco smoking status WVIS LIFETIME NON-TOBACCO USER 10/10/2012 pt denies smoking [facility] History of tobacco use QUIT TOBACCO USE 1-7 YEARS AGO 10/11/2011 [facility] History of tobacco use QUIT TOBACCO USE 1-7 YEARS AGO 10/08/2010 quit 6 months ago [facility] History of tobacco use V1-PT THINKING ABOUT QUIT TOBACCO USE 10/27/2009 [facility] History of tobacco use CURRENT SMOKER 04/28/2009 2-3 cig per day [facility] History of tobacco use V1-PT THINKING ABOUT QUIT TOBACCO USE 10/27/2008 [facility] History of tobacco use CURRENT SMOKER 01/28/2008 [facility] History of tobacco use V1-PT DECLINES TOBACCO CESSATION MEDS 07/27/2007 [facility] [place] [facility] History of tobacco use QUIT TOBACCO USE IN PAST YEAR 11/13/2006 6 weeks [facility] History of tobacco use CURRENT SMOKER 01/17/2006 1 pk every 2 weeks [facility] History of tobacco use HISTORY OF SMOKING 08/11/2005 Smoke free 1 year [facility] History of tobacco use QUIT TOBACCO USE IN PAST YEAR 08/05/2004 1.5 month [facility] History of tobacco use CURRENT SMOKER 11/10/2003 Currently smoking 1 pp week [facility] History of tobacco use CURRENT SMOKER 10/28/2002 information added without vet present. [facility] [place] [facility] History of tobacco use CURRENT SMOKER 08/15/2001 [facility]
== END 2024-11-27 10:18 | disposition home or self-care (01) ==
LOC: HO.HMCH 09:31
PROVIDERS: PCP Internal Medicine
DX: E11.8 Type 2 diabetes mellitus with unspecified complications (principal)

== ENCOUNTER → 2024-11-27 09:31 | Outpatient (BNVA) | payer MEDICARE, SELFPAY | PROVIDERS: PCP Internal Medicine | DX: E11.8 Type 2 diabetes mellitus with unspecified complications (principal); E66.3 Overweight; E83.52 Hypercalcemia; E78.00 Pure hypercholesterolemia, unspecified; I10 Essential (primary) hypertension; I49.5 Sick sinus syndrome; Z95.0 Presence of cardiac pacemaker | CPT/HCPCS: 83036; 96127; 99212 ==

== ENCOUNTER 2024-11-28 09:28 | Outpatient (REF) | payer MEDICARE, SELFPAY ==
[2024-11-28 09:51] LABS: MANUAL DIFF FLAG NO
--- OUTSIDE RECORDS SUMMARY | 2024-11-28 10:22 | XMS_ITS | Continuity of Care Document ---
Author Name [facility] Organization [facility] Care Team Providers Care Velocity Shooter Name Role Phone [facility] Unavailable Unavailable Problems Combined list of problems [...] EVERY DAY [facility]AL ACTIVE [facility] ATENOLOL 50MG TAB TAKE ONE TABLET BY MOUTH EVERY DAY ORAL ACTIVE IVANA MIGUEL 2012 [facility] LISINOPRIL 20MG [...] Site Reaction Lot Number CVX Code Drug Tree Sapper Status Comments Source COVID-19 ([employer]), MRNA, LNP-S, PF, 30 MCG/0.3 ML DOSE 2 2020 208 complet ed PFR; [id number]; 1 [facility] COVID-19 ([employer]), MRNA, LNP-S, PF, 30 MCG/0.3 ML DOSE 1 2020 208 complet ed PFR; [id number]; 1 [facility] [...] Response Date Comment Source Tobacco smoking status INIS LIFETIME NON-TOBACCO USER 10/10/2012 pt denies smoking [...] DECLINES TOBACCO CESSATION MEDS 07/27/2007 [facility] [place] [facility] History of tobacco use QUIT TOBACCO USE IN PAST YEAR 11/13/2006 6 weeks [facility] History of tobacco use CURRENT SMOKER 01/17/2006 1 pk every 2 weeks [facility] History of tobacco use HISTORY OF SMOKING 08/11/2005 Smoke free 1 year [facility] History of tobacco use QUIT TOBACCO USE IN PAST YEAR 08/05/2004 1.5 month [facility] History of tobacco use CURRENT SMOKER 11/10/2003 Currently smoking 1 pp week [facility] History of tobacco use CURRENT SMOKER 10/28/2002 information added without vet present. [facility] [place] [facility] History of tobacco use CURRENT SMOKER 08/15/2001 [facility]
[2024-11-28 10:37] LABS: Basophils Absolute Auto 0.1 X10*3/uL (0.0-0.2); Basophils Percent Auto 0.8 % (0-2); Eosinophils Absolute Auto 0.2 X10*3/uL (0.0-0.4); Eosinophils Percent Auto 2.6 % (0-4); Hematocrit 41.6 % (42.0-52.0); Hemoglobin 13.9 g/dl (14.0-18.0); Imm Gran Abs Auto 0.02 X10*3/uL (0.00-0.03); Imm Gran Pct Auto 0.3 % (0.0-0.4); Lymphocytes Absolute Auto 1.5 X10*3/uL (1.2-4.9); Lymphocytes Percent Auto 23.8 % (20-40); Mean Corpuscular HGB Conc 33.4 g/dl (31.0-36.0); Mean Corpuscular Hemoglobin 29.9 pg (27.0-33.0); Mean Corpuscular Volume 89.5 fL (80.0-98.0); Mean Platelet Volume 10.4 fL (9.4-12.4); Monocytes Absolute Auto 0.6 X10*3/uL (0.1-1.2); Monocytes Percent Auto 9.8 % (2-11); Neutrophils Percent Auto 62.7 % (45-73); Platelet Count 200 X10*3/uL (160-400); Red Blood Count 4.65 X10*6/uL (4.60-5.80); Red Cell Distribution Width 12.6 % (11.0-16.0); White Blood Count 6.4 X10*3/uL (4.8-10.8)
[2024-11-28 10:47] LABS: Estimated Average Glucose 134 mg/dL; Hemoglobin A1C 166.7105 umol/L; Hemoglobin A1c % 6.3 % (<6.0); Total Hemoglobin (HGBA1C) 3651.8092 umol/L
[2024-11-28 11:06] LABS: Appearance Urine Clear; Color Urine Yellow; Glucose Urine UA Negative (Negative); Leukocyte Esterase Urine Moderate (2+) (Negative); Nitrite Urine Negative (Negative); PH 5.5 (5.0-9.0); Specific Gravity - Urine 1.015 (1.005-1.025); UMIC TRIGGER UACC YES; Urine Blood Negative (Negative); Urine Ketones Negative (Negative); Urine Protein Negative (Neg-Trace)
[2024-11-28 11:12] LABS: Bacteria Urine 4+ (None Seen); Hyaline Casts Urine 0-2 /LPF (0-2); RBC Urine 0-2 /HPF (0-2); Squamous Epithelial Cell Urine 0-2 /HPF (0-2); UACC Culture Trigger YES
[2024-11-28 11:21] LABS: Alanine Aminotransferase 31 U/L (0-40); Albumin Level 4.3 g/dL (3.5-5.0); Alkaline Phosphatase 67 U/L (39-117); Anion Gap 13 (12-20); Aspartate Amino Transferase 34 U/L (5-37); Bilirubin Total 0.7 mg/dL (0.0-1.0); Blood Urea Nitrogen 14 mg/dL (9-16); Carbon Dioxide 25 mmol/L (22-29); Chloride 108 mmol/L (96-108); Cholesterol 126 mg/dL (<200); Estimated Glomerular Filt Rate > 60; Glucose Fasting 132 mg/dL (60-99); HDL Cholesterol 46 mg/dL (>40); LDL Cholesterol Calculated 60 mg/dL (<100); Potassium 4.2 mmol/L (3.3-5.1); Sodium 142 mmol/L (135-145); Total Protein 7.5 g/dL (6.5-8.0); Triglycerides 104 mg/dL (<150); Vitamin D 25-OH Total 12.4 ng/mL (>30)
[2024-11-28 11:34] LABS: Folate 14.9 ng/mL (> or = 4.0); Vitamin B12 604 pg/mL (200-900)
[2024-11-28 11:57] LABS: Creatinine Urine 72.92 mg/dL; Microalbum/Creatinine Ratio Ur 13.7 ug/mg cr (<30)
== END 2024-11-28 09:29 | disposition home or self-care (01) ==
LOC: HO.LAB 09:28
PROVIDERS: PCP Internal Medicine; Visit Provider Internal Medicine
DX: D64.9 Anemia, unspecified (principal); E78.00 Pure hypercholesterolemia, unspecified; E53.8 Deficiency of other specified B group vitamins; E11.9 Type 2 diabetes mellitus without complications; E55.9 Vitamin D deficiency, unspecified; R30.0 Dysuria
CPT/HCPCS: 36415; 80053; 80061; 81001; 81003; 82043; 82306; 82570; 82607; 82746; 83036; 85025; 87086

== ENCOUNTER → 2025-01-30 23:59 | Outpatient (BNV) | payer MEDICARE, SELFPAY ==
--- NOTE | 2025-01-30 15:14 | A.OFFVIS_ITS ---
Intake Visit Reasons: Remote device check- [facility] Allergies No Known Allergies Allergy (Verified 11/27/24 10:01) [facility] Medical History Cardiomyopathy Overweight (BMI 25.0-29.9) Tachycardia-bradycardia syndrome Vitamin D deficiency Pure hypercholesterolemia Diabetes mellitus Benign essential hypertension Diabetes type 2, uncontrolled Hypospadias in male Melanocytic nevus Actinic keratoses History of anemia History of colon cancer Wears partial dentures BPH (benign prostatic hyperplasia) Hyperlipidemia, unspecified Type 2 diabetes mellitus with unspecified complications Essential hypertension NSVT (nonsustained ventricular tachycardia) Normally functioning cardiac pacemaker present Surgical History History of partial colectomy (~2013) Hx of tonsillectomy Hx of appendectomy H/O colonoscopy History of cardiac pacemaker (~2011) Family History Father Diabetes Heart disease Hypertension Mother Hypertension CVD (cardiovascular disease) Diabetes Social History [facility] Members: [facility] Alcohol intake: current Alcohol intake frequency: holidays/special occasions only Patient Tobacco Use Status: Former Tobacco user e-Cigarette/Vaping Use: Never Used Second Hand Smoke Exposure: Yes service: Yes Current occupational status: retired Cognitive needs: No Hearing needs: No Vision needs: Yes (Glasses) Office Procedures Cardiac Device Check Cardiac Device Check Details: Date of service- 01/30/2025 ; Battery life >6 years; normal lead parameters; AP 17%; [employer] >99%; no significant arrhythmias. Overall normal device function. [id number] Cardiac Device Interrogation, pacemaker Procedure code (CPT) selection complete Assessment & Plan Assessment & Plan (1) Presence of cardiac pacemaker: Code(s): Z95.0 - Presence of cardiac pacemaker Category: Medical (2) Tachycardia-bradycardia syndrome: Code(s): I49.5 - Sick sinus syndrome Category: Medical Plan x Coding Level of Care Code Procedure Only Diagnoses Presence of cardiac pacemaker Z95.0 Tachycardia-bradycardia syndrome I49.5 CPT Codes Cardiac Device Check - Cardiac Device 12: [id number] Cardiac Device Interrogation, pacemaker ([id number])
== END ==
PROVIDERS: PCP Internal Medicine; Visit Provider Internal Medicine
DX: I49.5 Sick sinus syndrome (principal); Z95.0 Presence of cardiac pacemaker
CPT/HCPCS: 93294

== ENCOUNTER → 2025-05-01 23:59 | Outpatient (BNV) | payer MEDICARE, SELFPAY ==
--- NOTE | 2025-05-06 13:09 | MHC.OFFVIS ---
Intake Visit Reasons: REmote device check-[facility] Allergies No Known Allergies Allergy (Verified 11/27/24 10:01) [facility] Medical History Cardiomyopathy Overweight (BMI 25.0-29.9) Tachycardia-bradycardia syndrome Vitamin D deficiency Pure hypercholesterolemia Diabetes mellitus Benign essential hypertension Diabetes type 2, uncontrolled Hypospadias in male Melanocytic nevus Actinic keratoses History of anemia History of colon cancer Wears partial dentures BPH (benign prostatic hyperplasia) Hyperlipidemia, unspecified Type 2 diabetes mellitus with unspecified complications Essential hypertension NSVT (nonsustained ventricular tachycardia) Normally functioning cardiac pacemaker present Surgical History History of partial colectomy (~2013) Hx of tonsillectomy Hx of appendectomy H/O colonoscopy History of cardiac pacemaker (~2011) Family History Father Diabetes Heart disease Hypertension Mother Hypertension CVD (cardiovascular disease) Diabetes Social History [facility] Members: [facility] Alcohol intake: current Alcohol intake frequency: holidays/special occasions only Patient Tobacco Use Status: Former Tobacco user e-Cigarette/Vaping Use: Never Used Second Hand Smoke Exposure: Yes service: Yes Current occupational status: retired Cognitive needs: No Hearing needs: No Vision needs: Yes (Glasses) Office Procedures Cardiac Device Check Cardiac Device Check Details: Date of service- 05/01/2025 ; Battery life >6 years; normal lead parameters; AP 20%; [employer] >99%; no significant arrhythmias. Overall normal device function. [id number] Cardiac Device Interrogation, pacemaker Procedure code (CPT) selection complete Assessment & Plan Assessment & Plan (1) Presence of cardiac pacemaker: Code(s): Z95.0 - Presence of cardiac pacemaker Category: Medical (2) Heart block: Code(s): I45.9 - Conduction disorder, unspecified Category: Medical Plan x Coding Level of Care Code Procedure Only Diagnoses Presence of cardiac pacemaker Z95.0 Heart block I45.9 CPT Codes Cardiac Device Check - Cardiac Device 12: [id number] Cardiac Device Interrogation, pacemaker ([id number])
== END ==
PROVIDERS: PCP Internal Medicine; Visit Provider Internal Medicine
DX: I45.9 Conduction disorder, unspecified (principal); Z95.0 Presence of cardiac pacemaker
CPT/HCPCS: 93294

== ENCOUNTER 2025-06-17 09:29 | Outpatient (REF) | payer MEDICARE, SELFPAY ==
[2025-06-17 09:41] LABS: MANUAL DIFF FLAG NO
[2025-06-17 10:37] LABS: Hematocrit 44.7 % (42.0-52.0); Hemoglobin 14.9 g/dl (14.0-18.0); Imm Gran Abs Auto 0.03 X10*3/uL (0.00-0.03); Imm Gran Pct Auto 0.4 % (0.0-0.4); Lymphocytes Absolute Auto 2.0 X10*3/uL (1.2-4.9); Mean Corpuscular HGB Conc 33.3 g/dl (31.0-36.0); Mean Corpuscular Hemoglobin 30.2 pg (27.0-33.0); Mean Corpuscular Volume 90.7 fL (80.0-98.0); NRBC Abs Auto 0.000 X10*3/uL (0.0-0.012); NRBC Pct Auto 0.0 /100WBC (0.0-0.2); Platelet Count 187 X10*3/uL (160-400); Red Blood Count 4.93 X10*6/uL (4.60-5.80); White Blood Count 8.5 X10*3/uL (4.8-10.8)
[2025-06-17 11:14] LABS: Alanine Aminotransferase 19 U/L (0-40); Albumin Level 4.6 g/dL (3.5-5.0); Alkaline Phosphatase 76 U/L (39-117); Anion Gap 10 (12-20); Aspartate Amino Transferase 28 U/L (5-37); Blood Urea Nitrogen 14 mg/dL (9-16); Calcium 10.1 mg/dL (8.4-10.2); Carbon Dioxide 24 mmol/L (22-29); Chloride 110 mmol/L (96-108); Cholesterol 112 mg/dL (<200); Estimated Glomerular Filt Rate > 60; HDL Cholesterol 43 mg/dL (>40); Potassium 4.3 mmol/L (3.3-5.1); Sodium 140 mmol/L (135-145); Total Protein 7.8 g/dL (6.5-8.0); Triglycerides 88 mg/dL (<150)
[2025-06-17 11:31] LABS: Folate 13.4 ng/mL (> or = 4.0); Vitamin B12 707 pg/mL (200-900)
== END 2025-06-17 09:30 | disposition home or self-care (01) ==
LOC: HO.LAB 09:29
PROVIDERS: PCP Internal Medicine; Visit Provider Internal Medicine
DX: E11.9 Type 2 diabetes mellitus without complications (principal); E78.00 Pure hypercholesterolemia, unspecified; E55.9 Vitamin D deficiency, unspecified; E53.8 Deficiency of other specified B group vitamins; D64.9 Anemia, unspecified
CPT/HCPCS: 36415; 80053; 80061; 82306; 82607; 82746; 83036; 84443; 85025

== ENCOUNTER 2025-06-24 16:20 | Outpatient (AMB) | payer MEDICARE, SELFPAY ==
[2025-06-24 16:26] VITALS: BP 130/78; PULSE 68; O2SAT 97; BMI 26.5
--- NOTE | 2025-06-24 16:26 | A.OFFPC_ITS ---
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 Required: No Accompanied by: Self / Same As Patient Allergies No Known Allergies Allergy (Verified 06/24/25 17:12) Medication List - Last Reconciled 06/24/25 by Silvano Peck MD amlodipine 2.5 mg PO DAILY 90 days aspirin 81 mg PO DAILY benazepril 40 mg PO DAILY 90 days blood pressure monitor (Blood Pressure Kit) As directed cholecalciferol (vitamin D3) 50 mcg PO DAILY cyanocobalamin (vitamin B-12) 1,000 mcg PO DAILY metformin 1,000 mg (2 x 500 mg) PO BID metoprolol succinate ER 100 mg PO DAILY multivitamin with folic acid 400 mcg (Daily-Jose (with folic acid)) 1 tab PO DAILY repaglinide 0.5 mg PO QPM 90 days simvastatin 40 mg PO BEDTIME 90 days Tobacco use date assessed: 06/24/25 Fall risk assessment: No Falls in past year Last assessed Fall Risk: 06/24/25 Dental Screening Dental Screen Date: 06/24/25 Did you have a dental visit in the last 12 months?: No Did you have a dental problem in the last 6 months where you did not have access to dental care?: No Was dental information given to patient?: No HPI DM/Hypercalemia/htn/hld HPI Details Patient comes in today for his follow up visit States that he feels okay He denies any headaches or dizziness Denies any chest pains, no SOB No nausea/vomiting, no abdominal pain No change in bowel habits noted He had his follow up labs done last week - to discuss his results [facility] Medical History (Updated 06/28/25 @ 02:31 by Silvano Peck MD) Essential hypertension Cardiomyopathy Overweight (BMI 25.0-29.9) Tachycardia-bradycardia syndrome Vitamin D deficiency Pure hypercholesterolemia Diabetes mellitus Benign essential hypertension Diabetes type 2, uncontrolled Hypospadias in male Melanocytic nevus Actinic keratoses History of anemia History of colon cancer Wears partial dentures BPH (benign prostatic hyperplasia) Hyperlipidemia, unspecified Type 2 diabetes mellitus with unspecified complications Essential hypertension NSVT (nonsustained ventricular tachycardia) Normally functioning cardiac pacemaker present Surgical History History of partial colectomy (~2013) Hx of tonsillectomy Hx of appendectomy H/O colonoscopy History of cardiac pacemaker (~2011) Family History Father Diabetes Heart disease Hypertension Mother Hypertension CVD (cardiovascular disease) Diabetes Social History Household Members: Significant Other [facility] Alcohol intake: current Alcohol intake frequency: holidays/special occasions only Patient Tobacco Use Status: Former Tobacco user e-Cigarette/Vaping Use: Never Used Second Hand Smoke Exposure: Yes service: Yes Current occupational status: retired Cognitive needs: No Hearing needs: No Vision needs: Yes (Glasses) Questionnaire PHQ-9 Over the last 2 weeks, how often have you been bothered by any of the following problems? 1. Little interest or pleasure in doing things: not at all 2. Feeling down, depressed, or hopeless: not at all 3. Trouble falling or staying asleep, or sleeping too much: not at all 4. Feeling tired or having little energy: not at all 5. Poor appetite or overeating: not at all 6. Feeling bad about yourself - or that you are a failure or have let yourself or your family down: not at all 7. Trouble concentrating on things, such as reading the newspaper or watching television: not at all 8. Moving or speaking so slowly that other people could have noticed. Or the opposite - being so fidgety or restless that you have been moving around a lot more than usual: not at all 9. Thoughts that you would be better off or of hurting yourself in some way: not at all Total score: 0 Depression Screening Interpretation: Negative Depression Screening Done: Yes 84835 - PHQ-9 Billing: Yes Source: Developed by Drs. Tobin White, Sangita Chawla, Vin Nelson and colleagues, with an educational filiberto from [employer]. Thrive Questionnaire Date Thrive assessed: 06/24/25 I am a: Patient What is your living situation today?: I have a steady place to live Within the past 12 months, did the food you bought not last and you didn't have the money to get more?: Never true Within the past 12 months, did you worry whether your food would run out before you got money to buy more?: Never true Do you have trouble paying for medicines?: No Do you have trouble getting transportation to medical appointments?: No Do you have trouble paying your heating and electricity bill?: No Do you have trouble taking care of your child, family member or friend?: No Do you have trouble with day-to-day activities such as bathing, preparing meals, shopping, managing finances, etc.?: No Are you currently unemployed and looking for a job?: No Are you interested in more education?: No Please select the resources that you would like help with: None Currently or been in a relationship where the following occur: I choose not to answer THRIVE Score: 0 AUDIT C Alcohol Use Questionnaire (AUDIT-C) 1. How often do you have a drink containing alcohol?: 2-4 times a month 2. How many drinks containing alcohol do you have on a typical day when you are drinking?: 3 or 4 3. How often do you have six or more drinks on one occasion?: Never Total Score: 3 Score Reviewed/Action Taken: Yes JOHNNY-7 AMB Questionnaire JOHNNY-7 Date JOHNNY - 7 assessed: 06/24/25 Feeling nervous, anxious, or on edge: 0 = Not at all Not being able to stop or control worryin = Not at all Worrying too much about different things: 0 = Not at all Trouble relaxin = Not at all Being so restless that it is hard to sit still: 0 = Not at all Becoming easily annoyed or irritable: 0 = Not at all Feeling afraid as if something awful might happen: 0 = Not at all Total JOHNNY-7 score (0-4 normal; 5-9 mild; 10-14 moderate; 15-21 severe): 0 Source: Developed by Drs. Tobin White, Sangita Chawla, Vin Nelson and colleagues, with an educational filiberto from [employer]. JOHNNY-7 Assessment Billing JOHNNY-7 Assessment Tool: JOHNNY-7 Assessment 95114 Review of Systems Const Denies chills, Denies fatigue, Denies fever(s) and Denies headache(s) ENT Denies dysphagia, Denies dizziness, Denies otalgia, Denies headache(s), Denies neck pain, Denies odynophagia and Denies sore throat Card Denies chest pain, Denies palpitations and Denies dyspnea Resp Denies cough and Denies dyspnea GI Denies abdominal pain, Denies constipation, Denies dysphagia, Denies heartburn, Denies diarrhea, Denies nausea, Denies odynophagia and Denies vomiting Denies difficulty urinating, Denies dysuria, Denies nocturia and Denies urinary frequency Musc Denies back pain and Denies neck pain Skin/Breast Denies rash Neuro Denies dizziness and Denies headache(s) Endo Denies fatigue and Denies palpitations Physical exam (Primary Care) Vital Signs: Last Vital Signs Pulse 68 06/24/25 16:26 BP 130/78 06/24/25 16:26 Pulse Ox 97 06/24/25 16:26 Oxygen Delivery Method Room Air 06/24/25 16:26 BMI result Body Mass Index 26.5 Tobacco/Smoking Status: Tobacco use Status Tobacco use date assessed 06/24/25 06/24/25 16:31 Patient Tobacco Use Status Former Tobacco user 06/24/25 16:31 e-Cigarette/Vaping Use Never Used 06/24/25 16:31 PHQ-9: PHQ-9 Score PHQ-9: Total score 0 06/24/25 17:14 Depression Screening Interpretation: Negative Thrive Assessment: Date of Thrive Assessment Date Thrive assessed 06/24/25 06/24/25 16:31 Currently or been in a relationship where the following occur: I choose not to answer Const General: no acute distress and alert HENMT Ears: TM's normal bilaterally and EAC's normal Throat: Yes posterior oropharynx normal and Yes tonsils normal (no TP congestion) Neck Neck: Yes no lymphadenopathy and Yes supple Thyroid: Thyroid normal Resp Auscultation: clear to auscultation bilaterally, no rales and no wheezes Cardio Rate: regular rate Rhythm: regular rhythm Heart sounds: no murmurs GI Palpation (GI): Soft to palpation and nontender Auscultation: normal bowel sounds General: Yes no CVA tenderness Back/Spine/Pelvis Back: no CVA tenderness Thoracic/Lumbar Spine: No lumbar spinal tenderness Skin Rashes: no rashes Extrem General: Yes no clubbing, cyanosis or edema Results Reviewed Results Reviewed: Laboratory Tests 10/17/23 06/17/25 09:37 09:39 WBC 7.0 8.5 Hgb 15.0 14.9 Hct 43.4 44.7 Plt Count 197 187 Sodium 141 140 Potassium 4.0 4.3 Creatinine 0.88 0.98 Estimated GFR > 60 > 60 Fasting Glucose 127 H 133 H Hemoglobin A1c % 5.8 6.3 H Calcium 10.1 AST 28 ALT 19 Triglycerides 88 Cholesterol 112 LDL Cholesterol, Calc 52 HDL Cholesterol 43 Vitamin B12 707 25-OH Vitamin D Total 9.2 L TSH 1.29 Coding Level of Care Code Est Pt Level 4 (76156) Diagnoses Type 2 diabetes mellitus without complication, without long-term current use of insulin E11.9 Diabetes mellitus type: type 2 Diabetes mellitus long term care administrator insulin use: without long term care administrator use Diabetes mellitus complication status: without complication Essential hypertension I10 Pure hypercholesterolemia E78.00 Hypercalcemia E83.52 Vitamin D deficiency E55.9 Tachycardia-bradycardia syndrome I49.5 Presence of cardiac pacemaker Z95.0 Overweight (BMI 25.0-29.9) E66.3 Additional Codes JOHNNY-7 Assessment Billing - JOHNNY-7 Assessment Tool: JOHNNY-7 Assessment 15634 ([id number]) PHQ-9 - 18911 - PHQ-9 Billing: Yes ([id number]) Assessment & Plan Assessment & Plan (1) Diabetes mellitus: Code(s): E11.9 - Type 2 diabetes mellitus without complications Category: Medical Qualifiers: Diabetes mellitus type: type 2 Diabetes mellitus long term care administrator insulin use: without long term care administrator use Diabetes mellitus complication status: without complication Qualified Code(s): E11.9 - Type 2 diabetes mellitus without complications Plan: His HgbA1c remains unchanged from previous at 6.3% (it was also previously at 6.3% a few months ago) - goal is at least <7.0% but ideally <6.5% Reinforced diabetic diet Continue Metformin 500 mg 2 tablets BID and Repaglinide 0.5 mg Q PM (2) Essential hypertension: Code(s): I10 - Essential (primary) hypertension Category: Medical Plan: Reinforced low sodium diet - goal is systolic BP of at least 140 to 150 mm Continue Metoprolol ER 100 mg QD, Benazepril 40 mg QD and Amlodipine 2.5 mg QD Patient is reminded to continue monitoring his blood pressure regularly (3) Pure hypercholesterolemia: Code(s): E78.00 - Pure hypercholesterolemia, unspecified Category: Medical Plan: Results of his labs done last week reviewed and discussed with patient Reinforced low cholesterol diet Continue Simvastatin 40 mg QD Will recheck his labs and fasting lipids in 6 months for follow up (4) Hypercalcemia: Code(s): E83.52 - Hypercalcemia Category: Medical Plan: Corrected - patient remains asymptomatic (5) Vitamin D deficiency: Code(s): E55.9 - Vitamin D deficiency, unspecified Category: Medical Plan: He is reminded that his Vitamin D level remains very low on his recent labs Continue Vitamin D3 2000 units QD (6) Tachycardia-bradycardia syndrome: Code(s): I49.5 - Sick sinus syndrome Category: Medical Plan: He's had no recurrence of symptoms recently Continue Metoprolol ER 100 mg QD Follow up with cardiology as scheduled (7) Presence of cardiac pacemaker: Code(s): Z95.0 - Presence of cardiac pacemaker Category: Medical Plan: He had a syncopal episode accompanied by second-degree heart block back in 2011, that led to permanent pacemaker implantation Follow up with cardiology as scheduled for continuing remote pacemaker monitoring (8) Overweight (BMI 25.0-29.9): Code(s): E66.3 - Overweight Category: Medical Plan: Reinforced diet/exercise as tolerated/lose weight Plan Follow up in 6 months Orders: Orders Complete Blood Count Auto Diff 6 Months D64.9 - Anemia, unspecified Comprehensive [place]. Panel Fast 6 Months E78.00 - Pure hypercholesterolemia, unspecified Lipid Panel 6 Months E78.00 - Pure hypercholesterolemia, unspecified Vitamin D 25-OH Total 6 Months E55.9 - Vitamin D deficiency, unspecified TSH reflex Free T4 6 Months E78.00 - Pure hypercholesterolemia, unspecified UA CC w/rflx Micro + Cult 6 Months R30.0 - Dysuria
--- OUTSIDE RECORDS SUMMARY | 2025-06-24 19:31 | XMS_ITS | Patient Health Record ---
Author Organization [facility] Address [address] [place] [address] Care Team Providers Care Milling Machine Operator Name Role Phone Lyndon Harvey M.D. Primary Care Provider Tim Barron Jr Unavailable [phone] Reason For Referral No Information Medications Medication SIG (Take, Route, Frequency, Duration) Notes Start Date End Date Status Aspir-81 81 MG Tablet Delayed Release 1 tablet Orally Once a day Active Lisinopril 30 MG Tablet 1 tablet Orally Once a day Active Vitamin D 1000 UNIT Tablet 1 tablet Oral ly Once a day Active Atenolol 50 MG Tablet 1 tablet Orally On ce a day Active Multi Vitamin/Minerals - Tablet 1 Orally QD Active Invokana 100 MG Tablet 1 tablet Orally O nce a day Active Pravastatin Sodium 80 MG Tablet 1 tablet Orally Once a day 05/31/2017 Active metFORMIN HCl 500mg 2 tablet with meals Orally Twice a day Active Immunizations Vaccine Route Administration Date Status Comme nts Flu vaccine no Preserv 3 and > Unknown 04/12/2017 Admin istered Social History Tobacco Use: Social History Observation Description Date Details (start date - stop date) Former Smoker NA - NA Social History Tobacco Use: Social Info Question Answer Notes Tobacco Use/Smoking Patient is a former smoker How long has it been since you last smoked? 5-10 years Additional Details Category Social Info Options Details Miscellaneous: Marital status: single Occupation: retired Problems Problem Type SNOMED Code ICD Code Onset Dates Problem Status W/U Status Risk Notes Problem Colon cancer screening (708755643) Colon cancer screening (Z12.11) Active confirmed Problem Malignant neoplasm of sigmoid colon ([id number]) Malignant neoplasm of sigmoid colon (C18.7) Active confirmed Problem Long-term current use of antiplatelet drug ([id number]) Current use of aspirin (Z79.82) Active confirmed Plan Of Treatment Future Test Test Name Order Date COLONOSCOPY 05/17/2013 COLONOSCOPY 06/11/2014 COLONOSCOPY 05/31/2017 Insurance Providers Payer Name Payer Address Payer Phone Subscriber Number Group Number Insured Name Patient Relationship to Insured Coverage Start Date Coverage End Date MEDICARE OF [place] [address] [facility] [place] [address] [phone] [id number] MARIA ANTONIA BARKSDALE Self - patient is the insured [employer] CLAIMS [address] [place] [address] [phone] [id number] MARIA ANTONIA BARKSDALE Self - patient is the insured Medical (General) History Medical History History ICD Code hypertension elevated cholesterol syncope second degree heart block diabetes mellitus Denies NC,CVA,Lung disease,renal disease Surgical History Surgery Date(Month/Year) cardiac pacemeker 06/30/2012 colon resection appendectomy
== END 2025-06-24 17:35 | disposition home or self-care (01) ==
LOC: HO.HMCH 16:21
PROVIDERS: PCP Internal Medicine; Visit Provider Internal Medicine
DX: E11.9 Type 2 diabetes mellitus without complications (principal); I10 Essential (primary) hypertension; E78.00 Pure hypercholesterolemia, unspecified; E83.52 Hypercalcemia; E55.9 Vitamin D deficiency, unspecified; I49.5 Sick sinus syndrome; Z95.0 Presence of cardiac pacemaker; E66.3 Overweight

== ENCOUNTER → 2025-06-24 16:20 | Outpatient (BNVA) | payer MEDICARE, SELFPAY | PROVIDERS: PCP Internal Medicine; Visit Provider Internal Medicine | DX: E11.9 Type 2 diabetes mellitus without complications (principal); I10 Essential (primary) hypertension; E78.00 Pure hypercholesterolemia, unspecified; E83.52 Hypercalcemia; I49.5 Sick sinus syndrome; Z95.0 Presence of cardiac pacemaker; E66.3 Overweight; Z13.31 Encounter for screening for depression; Z13.39 Encounter for screening examination for other mental health and behavioral disorders | CPT/HCPCS: 96127; 99212 ==